=== PATIENT | female | born 1940 | race Caucasian/White ===

== ENCOUNTER → 2018-01-01 | Outpatient (CLI) | payer OTHER ==
[~2018-01-01] MED LIST: ACEPHEN650 M1 RC; ADVAIR HFA 230M12 GM INH; AMARYL4 MG PO; ASPIR 8181 MG PO; ASPIRIN325 PO; AUGMENTIN 875-1 EACH PO; AUGMENTIN 875875 MG PO; BENADRYL25 MG PO; BENTYL10 MG PO; CALCITRIOL0.25 MCG PO; CARVEDILOL6.25 MG PO; CEFDINIR300 MG PO; COUMADIN 3 MG TA3 M1 PO; CYMBALTA60 MG PO; DUONEB 2.5-0.5 M3 ML INH; FUROSEMIDE 40 M40 M1 PO; HUMALOG100 UNIT/1 SUBQ; IMDUR 30 MG TAB30 M1 PO; IMDUR 30 MG TAB30 MG PO; IMDUR 60 MG TAB60 M1 PO; INDOMETHACIN 5050 M1 PO; IRON325 PO; K-DUR 20 MEQ T20 MEQ PO; KEFLEX500 M1 PO; KLOR-CON 1010 MEQ PO; LANTUS SUBQ; LASIX 20 MG TAB20 MG PO; LASIX 40 MG TAB40 M1 PO; LASIX 40 MG TAB40 M2 PO; LEVAQUIN 500 M500 M2 PO; LEXAPRO 10 MG T10 M1 PO; LEXAPRO 10 MG T10 M2 PO; LISINOPRIL10 MG PO; LISINOPRIL2.5 MG PO; LISINOPRIL5 MG PO; MUCUS RELIEF C400 MG PO; MUCUS RELIEF600 MG PO; NITROGLYCERIN0.4 MG SL; NITROGLYCERIN0.4 MG SUBLING; NITROSTAT0.4 MG SUBLING; NORCO 5-325 TA1 EACH PO; NOVOLOG100 UNIT/1 SUBQ; NOVOLOG100 UNIT/M SUBQ; PANTOPRAZOLE SO40 M1 PO; PAROXETINE HCL20 MG PO; PATANASE30.5 GM NASAL; PERCOCET 5-3251 EACH PO; PLAVIX 75 MG TA75 M1 PO; POTASSIUM20; PREDNISONE 10 M10 M1 PO; PREDNISONE 10 M10 MG PO; PREDNISONE 20 M20 M1 PO; PRINIVIL10 MG PO; PROTONIX40 M2 PO; SENNA S TABLET1 EACH PO; SINUS MED; SPIRIVA INH; STOOL SOFTENER; STOOL SOFTENER100 MG PO; STOOL SOFTENER50 MG PO; SYMBICORT160 MCG/4. INH; TAMIFLU75 MG PO; ULTRAM 50MG TAB50 MG PO; VANTIN PO; VITAMIN D2000 UNIT PO; VYTORIN 10-801 EACH PO; XARELTO10 MG PO; ZEMPLAR2 MCG PO; ZOCOR40 MG PO; [UNRECOGNIZED DRUG - OTHER] PO
[2018-01-01 16:04] LABS: CALCIUM 8.9 mg/dL (8.5-10.1); CREATININE 1.7 mg/dL (0.6-1.3)
== END ==
LOC: M.LAB 15:13
PROVIDERS: Internal Medicine
DX: I50.22 Chronic systolic (congestive) heart failure (principal)

== ENCOUNTER → 2018-01-20 | Outpatient (CLI) | payer OTHER ==
--- NOTE | 2018-01-20 11:48 | 2DMMODE ---
[place] [address] 2 D/M-MODE ECHOCARDIOGRAM Name: KIKI HERNANDEZ Room: [facility]#: [id number] Admission: 01/20/18 Attend Phys: Zoila Aguilar, Discharge: Date of : 42 Date of Service: 01/20/18 1148 Report #: [id number] THIS REPORT FOR: //name// APPROVED REPORT Study performed: 01/20/2018 10:12:03 EXAM: Comprehensive 2D, Doppler, and color-flow Echocardiogram Patient Location: Out-Patient BSA: 1.64 HR: 70 bpm BP: 152/64 mmHg Other Information Study Quality: Good Indications Congestive Heart Failure 2D Dimensions LVEF(%): 65.97 (>50%) IVSd: 14.53 (7-11mm) LVOT Diam: 19.76 (18-24mm) LVDd: 53.07 mm PWd: 11.91 (7-11mm) Ascending Ao: 30.79 (22-36mm) LVDs: 33.63 (25-40mm) Aortic Root: 25.27 mm Logan's LVEF: 65.97 % Volumes Left Atrial Volume (Systole) LA ESV Index: 27.80 mL/m2 Aortic Valve AoV Peak Salomon.: 1.33 m/s AO Peak Gr.: 7.03 mmHg LVOT Max P.47 mmHg AO Mean Gr.: 3.86 mmHg LVOT Mean P.25 mmHg LVOT Max V: 0.79 m/s AO V2 VTI: 25.75 cm LVOT Mean V: 0.51 m/s KEVIN (VTI): 1.78 cm2 LVOT V1 VTI: 14.95 cm Mitral Valve E/A Ratio: 0.70 MV Decel. Time: 217.55 ms MV E Max Salomon.: 0.62 m/[place] [address] 2 D/M-MODE ECHOCARDIOGRAM Name: KIKI HERNANDEZ Room: [facility]#: [id number] Admission: 01/20/18 Attend Phys: Zoila Aguilar, Discharge: Date of : 42 Date of Service: 01/20/18 1148 Report #: [id number] PHT: 63.09 ms MVA (PHT): 3.49 cm2 TDI E/Lateral E': 8.86 E/Medial E': 15.50 Medial E' Salomon.: 0.04 m/s Lateral E' Salomon.: 0.07 m/s Pulmonary Valve PV Peak Salomon.: 0.97 m/s PV Peak Gr.: 3.76 mmHg Tricuspid Valve TR Peak Gr.: 27.11 mmHg RVSP: 32.11 mmHg Left Ventricle The left ventricle is normal size. There is normal LV segmental wall motion. There is normal left ventricular wall thickness. Left ventricular systolic function is mildly decreased. LVEF is 45%.. Grade I - abnormal relaxation pattern. Right Ventricle The right ventricle is normal size. The right ventricular systolic function is normal. Atria Left atrium is mildly dilated. The right atrium size is normal. Aortic Valve Mild aortic valve sclerosis. Mild aortic regurgitation. There is no aortic valvular stenosis. Mitral Valve There is mitral annular calcification. Mild mitral regurgitation. No evidence of mitral valve stenosis. Tricuspid Valve The tricuspid valve is normal in structure. Mild tricuspid regurgitation. The RVSP is __32.1 mmHg. Pulmonic Valve The pulmonary valve is normal in structure. There is no pulmonic valvular regurgitation. Great Vessels The aortic root is normal in size. IVC [place] [address] 2 D/M-MODE ECHOCARDIOGRAM Name: KIKI HERNANDEZ Room: [facility]#: [id number] Admission: 01/20/18 Attend Phys: Zoila Aguilar, Discharge: Date of : 42 Date of Service: 01/20/18 1148 Report #: [id number] collapses with >50% inspiration Pericardium There is no pericardial effusion. <Conclusion> The left ventricle is normal size. There is normal left ventricular wall thickness. Left ventricular systolic function is mildly decreased. Grade I - abnormal relaxation pattern. The right ventricle is normal size. Left atrium is mildly dilated. Mild aortic valve sclerosis. Mild aortic regurgitation. There is no aortic valvular stenosis. There is mitral annular calcification. Mild mitral regurgitation. The tricuspid valve is normal in structure. Mild tricuspid regurgitation. The RVSP is __32.1 mmHg. IVC is normal in size and collapses with >50% inspiration There is no pericardial effusion. There is normal LV segmental wall motion. LVEF is 45%.. <ELECTRONICALLY SIGNED> By: Dima Weber MD, FACC 01/20/18 1148 1148 1148 Dima Weber MD, FACC /INF
== END ==
LOC: M.CRD 09:52
DX: I08.3 Combined rheumatic disorders of mitral, aortic and tricuspid valves (principal); I50.22 Chronic systolic (congestive) heart failure; I25.5 Ischemic cardiomyopathy

== ENCOUNTER 2018-03-08 18:13 | Inpatient (IN) | payer OTHER ==
[~2018-03-08] VITALS: Ht 152.4 cm; Wt 66.5 kg
[~2018-03-08 18:13] MED LIST changes: -CEFDINIR300 MG PO; -CYMBALTA60 MG PO; -LASIX 20 MG TAB20 MG PO; -SYMBICORT160 MCG/4. INH; -VITAMIN D2000 UNIT PO; -XARELTO10 MG PO
[2018-03-08 18:14] VITALS: BP 115/73
[2018-03-08] MEDS ORDERED: LASIX 20 MG TAB20 MG PO (18:25)
[2018-03-08] MEDS ORDERED: XARELTO10 MG PO (18:26)
[2018-03-08] MEDS ORDERED: CYMBALTA60 MG PO (18:26)
[2018-03-08] MEDS ORDERED: AMARYL4 MG PO (18:27)
[2018-03-08] MEDS ORDERED: VITAMIN D2000 UNIT PO (18:27)
[2018-03-08 18:36] LABS: ABSOLUTE BASOPHILS 0.1 thou/uL (0.0-0.2); ABSOLUTE EOSINOPHILS 0.2 thou/uL (0.0-0.7); ABSOLUTE LYMPHOCYTES 1.9 thou/uL (0.8-5.3); ABSOLUTE MONOCYTES 0.9 thou/uL (0.0-1.2); ABSOLUTE NEUTROPHILS 5.8 thou/uL (1.6-8.1); EOSINOPHILS 1.8 %; HEMATOCRIT 41.8 % (37.0-47.0); LYMPHOCYTES 21.8 %; MCH 31.4 pg (26.0-34.0); MCHC 33.6 g/dL (28.0-37.0); MCV 93.5 fL (80.0-100.0); MONOCYTES 10.5 %; NUCLEATED RBCS 0 /100WBC; PLATELET COUNT* 197 thou/uL (150-400); POLYS 64.9 %; RBC 4.47 mil/uL (4.20-5.00); RDW-CV 14.9 % (10.5-14.5); WBC 8.9 thou/uL (4.0-11.0)
[2018-03-08 18:44] LABS: APTT 33.1 Seconds (25.0-31.3); INR 1.2; PROTIME 11.8 Seconds (9.20-11.50)
[2018-03-08 18:45] LABS: ANION GAP 6 mmol/L (7-16); BUN 57 mg/dL (7-18); CALCIUM 9.1 mg/dL (8.5-10.1); CHLORIDE 103 mmol/L (98-107); CO2 30 mmol/L (21-32); GLUCOSE 181 mg/dL (70-99); POTASSIUM 4.1 mmol/L (3.5-5.1); SODIUM 139 mmol/L (136-145)
[2018-03-08 19:05] LABS: ALBUMIN 3.7 g/dL (3.4-5.0); ALKALINE PHOSPHATASE 113 U/L (46-116); CK-MB MASS 0.5 ng/mL (<0.5-3.6); LIPASE 116 U/L (73-393); MAGNESIUM 2.5 mg/dL (1.8-2.4); NT-PRO BRAIN NAT PEPTIDE 578 pg/mL (<300); SGOT 12 U/L (15-37); SGPT 13 U/L (30-65); TOTAL BILIRUBIN 0.7 mg/dL (<0.1-1.0); TOTAL PROTEIN 7.1 g/dL (6.4-8.2); TROPONIN-I LEVEL <0.06 ng/mL (<0.06)
[2018-03-08 19:14] LABS: BE 3.8 mmol/L (-2 to +3); HCO3 28.6 mmol/L (22.0-26.0); PCO2 43.7 mmHg (35.0-45.0); PO2 67.6 mmHg (75.0-100.0); pH 7.433 (7.340-7.450)
[2018-03-08 22:00] VITALS: BP 131/71
[2018-03-08 22:45] VITALS: BP 137/87
[2018-03-08 23:47] VITALS: BP 120/48
[2018-03-09 04:00] VITALS: BP 129/59
--- NOTE | 2018-03-09 05:32 | NUR ---
ASSUMED PT CARE AT B2200, PT IS A&OX4, PT IS TRACING NSR ON THE MONITOR WITH A 1DAVB. PT IS ON 2L NC SATTING MID TO HIGH 90'S. ADMISSION COMPLETED CHARTED. PT DENIES ANY PAIN OR NEEDS AT THIS TIME. PT WEARS A CPAP AT HOME, STATES SHE COULD HAVE HER DAUGHTER BRING IT UP TO HER SUSAN. PT IS UP TO BR WITH ONE. PT HAS A PERSONAL NICTOINE PATCH THAT SHE DOES NOT WANT TO REMOVE. BED IN LOW POSITION, FLAKITO LIGHT IN REACH, BED ALARM ON, YELLOW ARM BAND AND SOCKS IN PLACE. HOURLY ROUNDING COMPELTED FOR PT SAFETY.
[2018-03-09 08:00] VITALS: BP 132/69
--- NOTE | 2018-03-09 10:54 | NUR ---
ASSUMED CARE OF PT AT 0730. PT RESTING IN BED. PT A&0X4, DENIES ANY PAIN OR SHORTNESS OF BREATH AT THIS TIME. PT DAUGHTER AT BEDSIDE. UPDATED ON CURRENT CARE PLAN. PT TRACING SR WITH BBB ON THE CHECKER. ON 2L NC SAT 94%. PT WEARS CPAP AT [facility]. PT DAUGHTER IS TO BRING IN HOME CPAP LATER TODAY. PT UP SBA TO BATHROOM. CARDIOLOGY CONSULT IN PLACE. AM ASSESSMENT CHARTED. MEDICATIONS PER DEC. PT REPOSITIONS SELF. HOURLY ROUNDING OBSERVED. BED IN LOW POSITION. BED ALARM IN PLACE. FALL PRECAUTIONS IN PLACE. CALL LIGHT WITHIN REACH. WILL CONTINUE PLAN OF CARE.
[2018-03-09 13:03] VITALS: BP 142/69
--- NOTE | 2018-03-09 13:21 | EKG ---
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 /EPI
[2018-03-09 17:20] VITALS: BP 140/65
--- NOTE | 2018-03-09 17:21 | NUR ---
NO ACUTE CHANGES THROUGHOUT SHIFT. REFER TO CHARTING. PT HAD VISITORS THROUGHOUT SHIFT. PT DENIES ANY PAIN OR SHORTNESS OF BREATH. PT STATES SHE HAS SOME PAIN WHEN COUGHING BUT NOTHING LIKE YESTERDAY. PT CONTINUES TO TRACE SR WITH BBB ON THE LOG CUT OFF SAWYER. ON 2L NC SAT UPPER 90'S. PT UP SBA TO BATHROOM, AMBULATED TO BATHROOM MULTIPLE TIMES THROUGHOUT SHIFT. MEDICATIONS PER DEC. PT REPOSITIONS SELF. HOURLY ROUNDING OBSERVED. BED IN LOW POSITION. BED ALARM IN PLACE. FALL PRECAUTIONS IN PLACE. CALL LIGHT WITHIN REACH. WILL CONTINUE PLAN OF CARE.
[2018-03-09 20:10] VITALS: BP 163/66
[2018-03-09 23:50] VITALS: BP 124/50
[2018-03-10 04:17] VITALS: BP 111/60
--- NOTE | 2018-03-10 05:34 | NUR ---
ASSUMED CARE AROUND 1930. PT A/OX4 AND PLEASANT, RESTING MOST THE NIGHT. TELE MONITOR TRACING SR/BBB. VSS, AFEBRILE. ON CPAP WHILE SLEEPING. REPORTS GREEN SPUTUM. IV SALINE LOCKED. UP SBA TO BSC. SEE CHARTING. BEDALARM IN PLACE, CALL LIGHT IN REACH, WILL CONTINUE WITH PLAN OF CARE.
[2018-03-10 08:42] VITALS: BP 124/75
[2018-03-10 10:43] VITALS: BP 124/75
--- NOTE | 2018-03-10 11:32 | NUR ---
ASSUMED CARE OF PATIENT AFTER REPORT THIS MORNING. PATIENT SLEEPING, EASY TO WAKE, ORIENTED APPROPRIATELY. PHYSICAL ASSESSMENT COMPLETED AND CHARTED. VERY HARD OF HEARING. VITAL SIGNS STABLE. OXYGEN SATURATION WITHIN NORMAL LIMITS ON 2 LPM PER NASAL CANULA. PATIENT GIVEN SCHEDULED MEDICATIONS, SEE EMAR FOR DOCUMENTATION. TRANSFERS AND AMBULATES WITH ASSISTANCE FROM STAFF, USES CALL LIGHT APPROPRIATELY. DENIES NEEDS AT THIS TIME. CALL LIGHT WITHIN REACH. NURSING WILL CONTINUE TO MONITOR.
[2018-03-10 12:16] VITALS: BP 128/68
--- NOTE | 2018-03-10 16:10 | NUR ---
Pt is A&O. Resides at home with her dtr. Independent with ADLs. Pt wears home o2 and cpap, provided through [facility]. Hx of [facility]. No hx of SNF. Pt has a walker, cane and wc at home that she can use as needed. Cardiology following. Goal is to return home once medically stable.
[2018-03-10 16:17] VITALS: BP 132/58
--- NOTE | 2018-03-10 17:22 | NUR ---
NO CHANGE IN PATIENT STATUS. REMAINS ALERT AND ORIENTED APPROPRIATELY. VERY HARD OF HEARING. HAS BEEN UP TO BATHROOM WITH ASSISTANCE FROM STAFF SEVERAL TIMES THIS SHIFT. USES CALL LIGHT APPROPRIATELY. WORKED WITH PHYSICAL AND OCCUPATIONAL THERAPY. WALKED HALLWAYS WITH OXYGEN. DENIES NEEDS AT THIS TIME. CALL LIGHT WITHIN REACH. NURSING WILL CONTINUE TO MONITOR.
[2018-03-10 20:00] VITALS: BP 124/45
[2018-03-11 00:51] VITALS: BP 117/53
--- NOTE | 2018-03-11 02:58 | NUR ---
ASSUMED PT CARE AT 1930, PT IS A&OX4, SHE CAN BE FORGETFUL AT TIMES. PT DENIES ANY PAIN OR NEEDS AT THIS TIME. PT IS TRACING NSR WITH A 1DAVB AND A BBB ON THE MONITOR, ON 2L NC AND HER HOME CPAP AT [facility]. PT IS UP WITH ONE TO THE BR. BED IN LOW POSITION, CALL LIGHT IN REACH, BED ALARM ON, YELLOW ARM BAND AND SOCKS IN PLACE. HOURLY ROUNDING COMPLETED FOR PT SAFETY.
[2018-03-11 04:43] VITALS: BP 102/53
--- NOTE | 2018-03-11 07:40 | CON ---
[address] [address] CONSULTATION Name: KIKI HERNANDEZ Room: [address] IN M.R.#: [id number] Admission: 03/08/18 Attend Phys: Noah Ludwig, Discharge: Date of : 42 Report #: [id number] THIS REPORT FOR: //name// CC: Amy Ludwig DATE OF SERVICE: 03/10/2018 REQUESTING PHYSICIAN: Dr. Luis. REASON FOR CONSULTATION: Chest pain, history of COPD. DISCUSSION: The patient is a pleasant 77-year-old woman who has a history of underlying COPD. She has not been steroid or O2 dependent. In fact, she is not on any oxygen nor inhalers at home. She presented to the Emergency Department several days ago with complaints of increasing chest pain. It was anterior. It was worse when she coughed or took in a deep breath. She has been coughing up some thick green secretions. She does not use any Mucinex. She is not on any nebulizer treatments either. She was seen in the ED. Was noted to have coarse breath sounds. Arterial blood gases revealed adequate oxygenation while she was on a couple of liters of oxygen. She does have a past history of pulmonary embolism. This was in 2016. Initially was on warfarin, now has been on Xarelto and she has been taking that. Because of that history, she did have a ventilation perfusion lung scan done, which was thought to be low probability for PE. Chest film did not show any acute findings, but she did have changes of prior median sternotomy. She is breathing somewhat better relative to when she came in the hospital. However, the pain is still there. Our group has seen her previously when she has been in the hospital. However, she has not followed with us on an outpatient basis. However, it does appear that Dr. Hess had set her up for an appointment in our office, but then she was admitted. So that office visit has been canceled. She also has a history of coronary artery disease. Had coronary artery bypass grafting surgery back in 1990 at [facility]. Had an NC at that time. Subsequently, has had some other interventions done. She does continue to follow up with Cardiology. Has been known also to have an ischemic cardiomyopathy, diabetes mellitus type 2, sleep apnea for which she uses her CPAP machine, hypertension, dyslipidemia, peptic ulcer disease and has significant gastric bleed in 2011, exploratory laparotomy with lysis of adhesions and ileocecal resection in 2013, was due to a necrotic ileum. MEDICATIONS: At the time of admission, her home medications are isosorbide, [address] [place] [address] CONSULTATION Name: DAVID,KIKIPRISCILA BRADY Room: [address] ADM IN M.R.#: [id number] Admission: 03/08/18 Attend Phys: Noah Ludwig, Discharge: Date of : 42 Report #: [id number] Protonix, simvastatin, lisinopril, Coreg, Lasix, Xarelto, Cymbalta, Amaryl, vitamin D3. SOCIAL HISTORY: Long history of tobacco abuse. She has quit in the past and unfortunate would resume smoking. Her last cigarette was about 2 weeks ago. 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 REVIEW OF SYSTEMS: A 12-point ROS was done. Note positives above. She denies any difficulty swallowing. She has not had any nausea or vomiting. Has had the chest pain. She also notes she did not feel like it was heart as it was worse when she coughed or took in a deep breath. Secretions have been thick. Not using any Mucinex at home. Denies any syncopal episodes. She is not aware of any fevers, chills or sweats at home. Did not have any issues with lower extremity edema. PHYSICAL EXAMINATION: GENERAL APPEARANCE: A woman who looks her stated age. HEENT: Head is normocephalic. Sclerae nonicteric. Turgor is poor. Does have fair amount of wrinkles noted. Mucous membranes are little dry, but no thrush is seen. NECK: Negative for adenopathy. No JVD. HEART: Regular rate. No murmur is heard. No S3. She has a healed median sternotomy scar. I do not appreciate any instability with palpation over her sternum. No subcutaneous emphysema. LUNGS: Show breath sounds to be diminished. She has prolonged expiratory phase. Few faint late expiratory wheezes are heard and a few rhonchi. Excursion is equal. No pleural rubs are heard. ABDOMEN: Soft without definite hepatosplenomegaly noted. No guarding or rebound tenderness. EXTREMITIES: She has no clubbing. Lower extremities are thin. No edema is noted. SKIN: Warm and dry. NEUROLOGIC: She is alert and oriented x 3. She is hard of hearing. LABORATORY AND X-RAY FINDINGS: Arterial blood gases done on 2 liters, she had a pH of 7.43, pCO2 of 44, pO2 of 68, bicarb of 29 with a saturation of 92%. On her chemistry, BUN is 57, creatinine of 2.0, potassium is 4.1. ProBNP 578 on admission. White blood cell count 8900, hemoglobin 14, hematocrit of 41.8, platelets 197,000. Blood cultures have been sent. Those results are negative to date. X-ray was reviewed. She had a ventilation perfusion lung scan, low probability. Chest x-ray showed median sternotomy. Was a portable study. No acute findings noted. Her last echocardiogram done at this facility was last month. At that time, LV was normal size. EF was mildly decreased to 45% with grade 1 diastolic dysfunction. RV was normal. No significant [place] [address] CONSULTATION Name: DAVIDKIKIPRISCILA MELCHOREEN Room: [address] IN [facility].#: [id number] Admission: 03/08/18 Attend Phys: Noah Ludwig, Discharge: Date of : 42 Report #: [id number] IMPRESSION: 1. Chest pain. It is chest wall and it can be easily reproduced. Has discomfort with palpation over her sternum. Most likely from her cough. May have costochondritis. It does not appear that she has disrupted her sternum. 2. Chronic obstructive pulmonary disease exacerbation. 3. Probable acute bronchitis. She is having thick mucopurulent secretions. 4. History of tobacco abuse. 5. Coronary artery disease. She is status post coronary artery bypass grafting surgery in 1990. She has also had stents placed in the interim. 6. Diabetes mellitus type 2. 7. Chronic kidney disease. 8. History of bowel resection for ischemic ileum. RECOMMENDATIONS: 1. We will add Mucinex. 2. We will also start flutter device. 3. I will also add some IV steroids. <ELECTRONICALLY SIGNED> By: Roberta Dee MD 03/11/18 0740 1415 [id number] Dee MD /nt
[2018-03-11 08:00] VITALS: BP 110/48
[2018-03-11 11:57] VITALS: BP 127/42
[2018-03-11] MEDS ORDERED: SYMBICORT160 MCG/4. INH (12:22)
[2018-03-11] MEDS ORDERED: CEFDINIR300 MG PO (12:23)
--- NOTE | 2018-03-11 14:16 | NUR ---
ASSUMED CARE OF PATIENT AFTER REPORT THIS MORNING. PATIENT AWAKE, ALERT, AND ORIENTED APPROPRIATELY. PHYSICAL ASSESSMENT COMPLETED AND CHARTED. NO COMPLAINTS OF PAIN. VITAL SIGNS STABLE. OXYGEN SATURATION WITHIN NORMAL LIMITS ON ROOM AIR. GIVEN SCHEDULED MEDICATIONS, SEE EMAR FOR DOCUMENTATION. PATIENT TRANSFERS AND AMBULATES WITH ASSISTANCE FROM STAFF. USES CALL LIGHT APPROPRIATELY. RECEIVED ORDERS TO DISCHARGE PATIENT HOME WITH DAUGHTER. DAUGHTER STATES SHE WILL ARRIVE AT 1600 TO TAKE PATIENT HOME. PATIENT DENIES NEEDS AT THIS TIME. CALL LIGHT WITHIN REACH. WILL CONTINUE TO MONITOR UNTIL DISCHARGE.
--- NOTE | 2018-03-11 16:01 | NUR ---
DISCHARGE PAPERWORK COMPLETED AND CHECK BY SECOND NURSE. SIGNED BY ALL APPROPRIATE PARTIES AND ON PATIENT'S CHART. GIVEN PRESCRIPTIONS FOR SYMBICORT AND OMNICEF. DISCUSSED PRESCRIPTION EDUCATION WITH PATIENT. ANSWERED ALL QUESTIONS. PATIENT'S BELONGINGS ARE PACKED AND IN HER POSSESSION. WAITING FOR PATIENT'S RIDE. WILL CONTINUE TO MONITOR.
--- NOTE | 2018-03-11 16:14 | NUR ---
patient discharged at this time with daughter.
== END 2018-03-11 16:14 | disposition home or self-care (01) | DRG 291 ==
LOC: M.ERS 18:13 → M.TBA-ER 20:56 → M.2W 20:56
PROVIDERS: Family Medicine; Personal Emergency Response Attendant; ADMIT Family Medicine
DX: I13.0 Hypertensive heart and chronic kidney disease with heart failure and stage 1 through stage 4 chronic kidney disease, or unspecified chronic kidney disease (principal); J96.01 Acute respiratory failure with hypoxia; I50.23 Acute on chronic systolic (congestive) heart failure; N18.4 Chronic kidney disease, stage 4 (severe); J44.1 Chronic obstructive pulmonary disease with (acute) exacerbation; J44.0 Chronic obstructive pulmonary disease with (acute) lower respiratory infection; I48.91 Unspecified atrial fibrillation; G30.9 Alzheimer's disease, unspecified; F02.80 Dementia in other diseases classified elsewhere, unspecified severity, without behavioral disturbance, psychotic disturbance, mood disturbance, and anxiety; F17.210 Nicotine dependence, cigarettes, uncomplicated; E83.41 Hypermagnesemia; I25.10 Atherosclerotic heart disease of native coronary artery without angina pectoris; I25.5 Ischemic cardiomyopathy; E78.5 Hyperlipidemia, unspecified; E11.22 Type 2 diabetes mellitus with diabetic chronic kidney disease; E56.9 Vitamin deficiency, unspecified; J20.9 Acute bronchitis, unspecified; G47.33 Obstructive sleep apnea (adult) (pediatric); Z90.49 Acquired absence of other specified parts of digestive tract; Z90.89 Acquired absence of other organs; I25.2 Old myocardial infarction; Z86.711 Personal history of pulmonary embolism; Z95.5 Presence of coronary angioplasty implant and graft; Z95.1 Presence of aortocoronary bypass graft; Z79.899 Other long term (current) drug therapy; Z99.81 Dependence on supplemental oxygen

== ENCOUNTER 2018-12-17 10:26 | Inpatient (IN) | payer OTHER ==
[~2018-12-17] VITALS: Ht 152.4 cm; Wt 81.6 kg
[~2018-12-17 10:26] MED LIST changes: -CARVEDILOL6.25 MG PO; +CEFDINIR300 MG PO; +COREG6.25 MG PO; +CYMBALTA60 MG PO; +LASIX 20 MG TAB20 MG PO; +SYMBICORT160 MCG/4. INH; +VITAMIN D2000 UNIT PO; +XARELTO10 MG PO
[2018-12-17] MEDS ORDERED: PLAVIX 75 MG TA75 M1 PO (10:40)
[2018-12-17] MEDS ORDERED: VITAMIN B125000 MCG PO (10:41)
[2018-12-17] MEDS ORDERED: ZYRTEC10 M5 PO (10:41)
[2018-12-17 10:46] LABS: ABSOLUTE BASOPHILS 0.1 thou/uL (0.0-0.2); ABSOLUTE EOSINOPHILS 0.2 thou/uL (0.0-0.7); ABSOLUTE LYMPHOCYTES 2.2 thou/uL (0.8-5.3); ABSOLUTE MONOCYTES 0.9 thou/uL (0.0-1.2); BASOPHILS 0.8 %; EOSINOPHILS 2.9 %; HEMATOCRIT 47.1 % (37.0-47.0); MCH 31.1 pg (26.0-34.0); MCHC 33.8 g/dL (28.0-37.0); MONOCYTES 10.1 %; MPV 8.1 fl. (7.2-11.1); NUCLEATED RBCS 0 /100WBC; PLATELET COUNT* 241 thou/uL (150-400); POLYS 60.2 %; RBC 5.13 mil/uL (4.20-5.00); RDW-CV 13.5 % (10.5-14.5); WBC 8.4 thou/uL (4.0-11.0)
[2018-12-17 10:58] LABS: APTT 24.6 Seconds (25.0-31.3); PROTIME 10.5 Seconds (9.20-11.50)
[2018-12-17 11:00] LABS: ANION GAP 3 mmol/L (7-16); BUN 38 mg/dL (7-18); CALCIUM 9.5 mg/dL (8.5-10.1); CHLORIDE 99 mmol/L (98-107); CO2 36 mmol/L (21-32); CREATININE 1.8 mg/dL (0.6-1.3); GLUCOSE 230 mg/dL (70-99); POTASSIUM 4.1 mmol/L (3.5-5.1); SODIUM 138 mmol/L (136-145)
[2018-12-17 11:17] LABS: ALBUMIN 3.5 g/dL (3.4-5.0); ALKALINE PHOSPHATASE 121 U/L (46-116); CK-MB MASS 0.5 ng/mL (<0.5-3.6); LIPASE 140 U/L (73-393); MAGNESIUM 2.4 mg/dL (1.8-2.4); NT-PRO BRAIN NAT PEPTIDE 2776 pg/mL (<300); SGOT 10 U/L (15-37); SGPT 13 U/L (30-65); TOTAL BILIRUBIN 0.9 mg/dL (<0.1-1.0); TOTAL PROTEIN 6.9 g/dL (6.4-8.2); TROPONIN-I LEVEL <0.06 ng/mL (<0.06)
[2018-12-17 12:04] LABS: BE 3.8 mmol/L (-2 to +3); PCO2 42.5 mmHg (35.0-45.0); pH 7.442 (7.340-7.450)
[2018-12-17 12:06] LABS: PO2 58.7 mmHg (75.0-100.0)
[2018-12-17 14:40] VITALS: BP 167/74
[2018-12-17 16:00] VITALS: BP 157/63
--- NOTE | 2018-12-17 16:10 | EKG ---
[place] [address] ELECTROCARDIOGRAM REPORT Name: DAVIDKIKI PARR Room: [address] ADM IN .R.#: [id number] Admission: 12/17/18 Attend Phys: Boby Rogers MD Discharge: Date of : 42 Report #: [id number] THIS REPORT FOR: //name// 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: : 1940 Requested By: Stanley Chaparro Order Number: [id number] MD: Dima Weber Measurements Intervals [place] Rate: 80 P: 87 WV: 144 QRS: -5 QRSD: 146 T: 195 QT: 408 QTc: 471 Interpretive Statements Sinus rhythm Left bundle branch block Baseline wander in lead(s) I,II,aVR,aVF,V6 Compared to ECG 03/08/2018 18:18:06 No significant changes Electronically Signed On 12-17-2018 16:10:07 NATIONAL ACCOUNTS RECRUITER by Dima Weber [email or web address] <ELECTRONICALLY SIGNED> By: Dima Weber MD, [facility] 12/17/18 1610 1036 1036 Dima Weber MD, [facility] /EPI
[2018-12-17 16:20] VITALS: BP 116/65
[2018-12-17 20:00] VITALS: BP 148/68
[2018-12-18] VITALS (9 sets, daily range): BP systolic 107–193; BP diastolic 49–93
[2018-12-18 05:24] LABS: HEMATOCRIT 43.4 % (37.0-47.0); HEMOGLOBIN 14.6 gm/dL (12.0-15.0); MCH 31.2 pg (26.0-34.0); MCHC 33.7 g/dL (28.0-37.0); MCV 92.6 fL (80.0-100.0); MPV 8.6 fl. (7.2-11.1); NUCLEATED RBCS 0 /100WBC; PLATELET COUNT* 214 thou/uL (150-400); RBC 4.68 mil/uL (4.20-5.00); RDW-CV 13.4 % (10.5-14.5); WBC 8.5 thou/uL (4.0-11.0)
[2018-12-18 05:36] LABS: CALCIUM 9.5 mg/dL (8.5-10.1); CREATININE 1.9 mg/dL (0.6-1.3); POTASSIUM 4.4 mmol/L (3.5-5.1)
[2018-12-18 06:02] LABS: ABSOLUTE LYMPHOCYTES 1.1 thou/uL (0.8-5.3); ABSOLUTE NEUTROPHILS 7.4 thou/uL (1.6-8.1); LARGE PLATELETS RARE; PLATELET ESTIMATE ADEQUATE
[2018-12-18 06:03] LABS: ANISOCYTOSIS 1+
[2018-12-18 06:04] LABS: POIKILOCYTOSIS 1+
--- NOTE | 2018-12-18 18:21 | 2DMMODE ---
[place] [address] 2 D/M-MODE ECHOCARDIOGRAM Name: KIKI HERNANDEZ Room: [address] IN [facility]#: [id number] Admission: 12/17/18 Attend Phys: Boby Rogers, Discharge: Date of : 42 Date of Service: 12/18/18 1821 Report #: [id number] THIS REPORT FOR: //name// APPROVED REPORT Study performed: 12/18/2018 10:32:51 EXAM: Comprehensive 2D, Doppler, and color-flow Echocardiogram Patient Location: In-Patient Room #: 219 Status: routine BSA: 1.77 HR: 84 bpm BP: 183/72 mmHg Rhythm: NSR Other Information Study Quality: Good Indications Dyspnea 2D Dimensions IVSd: 12.22 (7-11mm) LVOT Diam: 19.54 (18-24mm) LVDd: 50.97 mm PWd: 12.65 (7-11mm) Ascending Ao: 29.31 (22-36mm) LVDs: 32.08 (25-40mm) Aortic Root: 27.98 mm Volumes Left Atrial Volume (Systole) LA ESV Index: 31.00 mL/m2 Aortic Valve AoV Peak Salomon.: 1.56 m/s AO Peak Gr.: 9.79 mmHg LVOT Max P.45 mmHg AO Mean Gr.: 5.34 mmHg LVOT Mean P.73 mmHg LVOT Max V: 0.93 m/s AO V2 VTI: 29.80 cm LVOT Mean V: 0.60 m/s KEVIN (VTI): 1.92 cm2 LVOT V1 VTI: 19.10 cm AI Wright: 3.05 m/s2 AI PHT: 358.51 ms Mitral Valve E/A Ratio: 0.83 [place] [address] 2 D/M-MODE ECHOCARDIOGRAM Name: KIKI HERNANDEZHLEEN Room: [address] IN .R.#: [id number] Admission: 12/17/18 Attend Phys: Boby Rogers, Discharge: Date of : 42 Date of Service: 12/18/18 1821 Report #: [id number] MV Decel. Time: 180.26 ms MV E Max Salomon.: 0.91 m/s MV PHT: 52.28 ms MVA (PHT): 4.21 cm2 TDI E/Lateral E': 9.10 E/Medial E': 15.17 Medial E' Salomon.: 0.06 m/s Lateral E' Salomon.: 0.10 m/s Pulmonary Valve PV Peak Salomon.: 1.33 m/s PV Peak Gr.: 7.03 mmHg Tricuspid Valve RAP Estimate: 5.00 mmHg TR Peak Gr.: 31.88 mmHg RVSP: 36.00 mmHg PA Pressure: 36.00 mmHg Left Ventricle The left ventricle is normal size. There is basilar inferior wall hypokinesis. Mild concentric left ventricular hypertrophy. Left ventricular systolic function is mildly decreased. LVEF is 45-50%. Grade I - abnormal relaxation pattern. Right Ventricle The right ventricle is normal size. The right ventricular systolic function is normal. Atria The left atrium size is normal. The right atrium size is normal. Aortic Valve Mild aortic valve sclerosis. Mild aortic regurgitation. There is no aortic valvular stenosis. Mitral Valve There is mitral annular calcification. Mild mitral regurgitation. No evidence of mitral valve stenosis. Tricuspid Valve The tricuspid valve is normal in structure. Trace tricuspid regurgitation. Mild pulmonary hypertension. Pulmonic Valve The pulmonary valve is normal in structure. There [place] [address] 2 D/M-MODE ECHOCARDIOGRAM Name: KIKI HERNANDEZ Room: [address] IN [facility]#: [id number] Admission: 12/17/18 Attend Phys: Boby Rogers, Discharge: Date of : 42 Date of Service: 12/18/18 1821 Report #: [id number] valvular regurgitation. Great Vessels The aortic root is normal in size. IVC is normal in size and collapses >50% with inspiration. Pericardium There is no pericardial effusion. <Conclusion> The left ventricle is normal size. Mild concentric left ventricular hypertrophy. Left ventricular systolic function is mildly decreased. LVEF is 45-50%. Grade I - abnormal relaxation pattern. There is basilar inferior wall hypokinesis. Mild aortic valve sclerosis. Mild aortic regurgitation. There is no aortic valvular stenosis. There is mitral annular calcification. Mild mitral regurgitation. Trace tricuspid regurgitation. Mild pulmonary hypertension. IVC is normal in size and collapses >50% with inspiration. <ELECTRONICALLY SIGNED> By: Seun Schwartz MD, FACC 12/18/181820 20 20 Seun Schwartz MD, FACC /INF
--- NOTE | 2018-12-18 18:22 | EKG ---
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: : 1940 Requested By: Stanley Chaparro Order Number: [id number] Noel DIAZ: Dima Weber Measurements Intervals [place] Rate: 81 P: 223 WI: 158 QRS: -17 QRSD: 147 T: 161 QT: 426 QTc: 495 Interpretive Statements Sinus or ectopic atrial rhythm Left bundle branch block Compared to ECG 12/17/2018 10:36:37 Ectopic atrial rhythm now present Electronically Signed On 12-18-2018 18:22:47 HYPERTRICHOLOGIST by Dima Weber [email or web address] <ELECTRONICALLY SIGNED> By: Dima Weber MD, [facility] 12/18/18 1822 1656 1656 Dima Weber MD, [facility] /EPI
--- NOTE | 2018-12-18 18:26 | EKG ---
[place] [address] ELECTROCARDIOGRAM REPORT Name: DAVIDKIKIEEN Room: [address] ADM IN M.R.#: [id number] Admission: 12/17/18 Attend Phys: Boby Rogers MD Discharge: Date of : 42 Report #: [id number] THIS REPORT FOR: //name// [facility] Test Date: 2018-12-18 Test Time: 00:40:42 Pat Name: KIKI HERNANDEZ Department: Room: [address] Gender: F Proof Sorter: : 1940 Requested By: Marko Christopher Order Number: [id number] Noel DIAZ: Dima Weber Measurements Intervals [place] Rate: 82 P: 58 PA: 159 QRS: 22 QRSD: 152 T: 192 QT: 423 QTc: 494 Interpretive Statements Sinus rhythm Left bundle branch block Baseline wander in lead(s) V5,V6 Compared to ECG 12/17/2018 10:36:37 No significant changes Electronically Signed On 12-18-2018 18:25:43 AIRCRAFT ENGINE TECHNICIAN by Dima Weber [email or web address] <ELECTRONICALLY SIGNED> By: Dima Weber MD, [facility] 12/18/18 1825 0040 0040 Dima Weber MD, [facility] /EPI
--- NOTE | 2018-12-18 18:27 | EKG ---
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
[2018-12-18 23:10] LABS: GLYCOHEMOGLOBIN (HGB A1C) 8.6 % (4.8-5.6)
[2018-12-19] VITALS: BP 114/42
[2018-12-19 04:00] VITALS: BP 100/50
[2018-12-19 05:38] LABS: ABSOLUTE LYMPHOCYTES 0.6 thou/uL (0.8-5.3); ABSOLUTE MONOCYTES 0.4 thou/uL (0.0-1.2); ABSOLUTE NEUTROPHILS 13.1 thou/uL (1.6-8.1); BASOPHILS 0.2 %; HEMATOCRIT 38.9 % (37.0-47.0); LYMPHOCYTES 4.2 %; MCH 30.3 pg (26.0-34.0); MCHC 33.3 g/dL (28.0-37.0); MONOCYTES 2.5 %; MPV 8.5 fl. (7.2-11.1); NUCLEATED RBCS 0 /100WBC; PLATELET COUNT* 204 thou/uL (150-400); POLYS 93.1 %; RBC 4.27 mil/uL (4.20-5.00); RDW-CV 13.5 % (10.5-14.5); WBC 14.1 thou/uL (4.0-11.0)
[2018-12-19 06:16] LABS: ALBUMIN 2.8 g/dL (3.4-5.0); CREATININE 2.1 mg/dL (0.6-1.3); TOTAL BILIRUBIN 0.4 mg/dL (<0.1-1.0); TOTAL PROTEIN 5.8 g/dL (6.4-8.2)
[2018-12-19 08:00] VITALS: BP 150/49
[2018-12-19 16:00] VITALS: BP 132/65; BP 137/46
--- NOTE | 2018-12-19 18:15 | CARDNUC ---
[place] [address] CARDIAC NUCLEAR IMAGING REPORT Name: KIKI HERNANDEZHLEEN Room: [address] IN [facility]#: [id number] Admission: 12/17/18 Attend Phys: Boby Rogers, Discharge: Date of : 42 Date of Service: 12/19/18 1815 Report #: [id number] THIS REPORT FOR: //name// APPROVED REPORT Study performed: 12/18/2018 17:12:00 Indication: Dyspnea, Chest pain Patient Location: In-Patient Room #: 219 Stress Tech: Savannah Sun Stress Nurse: Cara Callaway RN Ht: 5 ft 0 in Wt: 175 lbs BSA: 1.76 m2 BMI: 34.17 Medical History Medical History: mi, , CAD s/p CABG, CAD s/p stent, HTN, Diabetes, a fib, cardiomyoopathy, copd, chf Medications: carvedilol, clopidogrel, isosorbide, lisinopril, lasix, enoxaparin Allergies: nkda Cardiac Risk Factors: age, hypertension, diabetes, family hx Previous Cardiac Procedures: cabg, pci Exercise History: Sedentary Meds Held (24 hrs): carvedilol, isosorbide Resting Data Rest SPECT myocardial perfusion imaging was performed in supine position 30 minutes following the intravenous injection of 9.2 mCi of Tc-99m Sestamibi. Time of rest injection: 09:30 The images were gated to evaluate regional wall motion and calculate left ventricular ejection fraction. Administration Route: IV Administration Site: Left Arm Pharmacologic Stress Pharmacologic stress test was performed by injecting Regadenoson 0.4 mg IV push over 10-15 seconds immediately followed by the intravenous injection of 34.0 mCi of Tc-99m Sestamibi. Time of stress injection: 11:05 Administration Route: IV Administration Site: Left Arm Heart Rate at time of stress injection: [address] [place] [address] CARDIAC NUCLEAR IMAGING REPORT Name: KIKI HERNANDEZ Room: [address]#: [id number] Admission: 12/17/18 Attend Phys: Boby Rogers, Discharge: Date of : 42 Date of Service: 12/19/18 1815 Report #: [id number] Gated Stress SPECT was performed 40 minutes after stress injection. The images were gated to evaluate regional wall motion and calculate left ventricular ejection fraction. Prone imaging was performed. Stress Test Details Stress Test: Pharmacologic stress testing performed using 0.4 mg of regadenoson per 5 mL given IV over 10 seconds. Reason for pharmacologic stress test: physical limitation. 60 mg caffeine given for nausea. HR Max Heart Rate (APMHR): 143 bpm Resting HR: 62 bpm Target HR (85% APMHR): 121 bpm Max HR Achieved: 115 bpm % of APMHR: 80 Recovery HR: 95 bpm BP Resting BP: 110/65 mmHg Max BP: 147/60 mmHg Recovery BP: 158/64 mmHg ECG Resting ECG: Sinus Rhythm, LBBB Stress ECG: Sinus Rhythm, LBBB ST Change: None Arrhythmia: None Recovery ECG: Sinus Rhythm, LBBB Recovery ST Change: None Recovery Arrhythmia: None Clinical Reason for Termination: Completed protocol Exercise duration: 0 min sec Exercise capacity: 1 METs The patient had gastrointestinal side effects related to medication affect. No chest pain Lexiscan infusion. Nurse Comments pt too weak to walk on treadmill. pt had vomiting with lexiscan. caffiene ivp given with some relief. zofran 4 mg given with little relief. compazine 2.5 ivp given with complete releif Stress ECG Conclusion The baseline 12-lead EKG shows left bundle-branch block. EKGs obtained during and post Lexiscan infusion showed sinus rhythm with left bundle-branch block. No significant [place] [address] CARDIAC NUCLEAR IMAGING REPORT Name: DAVIDKIKIPRISCILA BRADY Room: [address]#: [id number] Admission: 12/17/18 Attend Phys: Boby Rogers, Discharge: Date of : 42 Date of Service: 12/19/18 1815 Report #: [id number] noted. Study Quality Study: Good Artifact: No artifact Study Data At rest, the left ventricular ejection fraction was 47%.. Post stress, the left ventricular ejection was 51%.. TID = 0.94. Perfusion Normal left ventricular perfusion. Wall Motion There is mild global hypokinesis as well as septal wall motion abnormalities. There is left ventricular systolic dyssynergy consistent with left bundle-branch block. Nuclear Conclusion ECG Findings: non-diagnostic Clinical Findings: negative for ischemia Nuclear Findings: negative for ischemia Exercise Capacity: not assessed Left Ventricular Function: abnormal Myocardial perfusion images showed no defect to suggest infarct or ischemia. There are global wall motion abnormalities as well as focal wall motion abnormalities noted likely consistent with underlying bundle branch block. This is not a high risk study. <Conclusion> The baseline 12-lead EKG shows left bundle-branch block. EKGs obtained during and post Lexiscan infusion showed sinus rhythm with left bundle-branch block. No significant stress-induced arrhythmias noted. <ELECTRONICALLY SIGNED> By: Seun Schwartz MD, FACC 12/19/181814 14 14 Seun Schwartz MD, FACC /INF
[2018-12-19 19:20] VITALS: BP 136/50
[2018-12-19 19:30] VITALS: BP 136/50
[2018-12-20 00:30] VITALS: BP 133/72
[2018-12-20 04:30] VITALS: BP 136/53
[2018-12-20 05:24] LABS: ABSOLUTE LYMPHOCYTES 0.6 thou/uL (0.8-5.3); ABSOLUTE MONOCYTES 0.3 thou/uL (0.0-1.2); ABSOLUTE NEUTROPHILS 10.4 thou/uL (1.6-8.1); BASOPHILS 0.1 %; HEMATOCRIT 40.6 % (37.0-47.0); HEMOGLOBIN 13.5 gm/dL (12.0-15.0); LYMPHOCYTES 5.3 %; MCH 30.2 pg (26.0-34.0); MCHC 33.2 g/dL (28.0-37.0); MONOCYTES 2.7 %; MPV 8.5 fl. (7.2-11.1); NUCLEATED RBCS 0 /100WBC; PLATELET COUNT* 214 thou/uL (150-400); POLYS 91.9 %; RBC 4.46 mil/uL (4.20-5.00); RDW-CV 13.6 % (10.5-14.5); WBC 11.3 thou/uL (4.0-11.0)
[2018-12-20 05:59] LABS: CALCIUM 9.4 mg/dL (8.5-10.1); POTASSIUM 4.7 mmol/L (3.5-5.1)
[2018-12-20 08:45] VITALS: BP 124/61
[2018-12-20 12:00] VITALS: BP 127/44
[2018-12-20 16:00] VITALS: BP 130/48
[2018-12-20 21:00] VITALS: BP 141/74
[2018-12-21 04:00] VITALS: BP 146/51
[2018-12-21 05:31] LABS: ABSOLUTE LYMPHOCYTES 0.5 thou/uL (0.8-5.3); ABSOLUTE MONOCYTES 0.3 thou/uL (0.0-1.2); ABSOLUTE NEUTROPHILS 8.5 thou/uL (1.6-8.1); BASOPHILS 0.1 %; HEMATOCRIT 39.4 % (37.0-47.0); HEMOGLOBIN 13.1 gm/dL (12.0-15.0); MCH 30.7 pg (26.0-34.0); MCHC 33.3 g/dL (28.0-37.0); MCV 92.2 fL (80.0-100.0); MONOCYTES 2.9 %; MPV 8.6 fl. (7.2-11.1); NUCLEATED RBCS 0 /100WBC; PLATELET COUNT* 188 thou/uL (150-400); RBC 4.27 mil/uL (4.20-5.00); RDW-CV 13.7 % (10.5-14.5); WBC 9.3 thou/uL (4.0-11.0)
[2018-12-21 05:58] LABS: CREATININE 1.8 mg/dL (0.6-1.3); MAGNESIUM 2.7 mg/dL (1.8-2.4); POTASSIUM 4.5 mmol/L (3.5-5.1)
[2018-12-21 07:57] VITALS: BP 182/74
[2018-12-21 12:16] VITALS: BP 134/53
[2018-12-21 16:00] VITALS: BP 143/79
[2018-12-21 20:00] VITALS: BP 169/65
[2018-12-22] VITALS: BP 138/47
[2018-12-22 04:00] VITALS: BP 144/60
[2018-12-22 05:10] LABS: ABSOLUTE LYMPHOCYTES 1.2 thou/uL (0.8-5.3); ABSOLUTE MONOCYTES 0.8 thou/uL (0.0-1.2); ABSOLUTE NEUTROPHILS 7.2 thou/uL (1.6-8.1); BASOPHILS 0.4 %; EOSINOPHILS 0.4 %; HEMATOCRIT 40.1 % (37.0-47.0); HEMOGLOBIN 13.3 gm/dL (12.0-15.0); LYMPHOCYTES 12.6 %; MCH 30.4 pg (26.0-34.0); MCHC 33.1 g/dL (28.0-37.0); MCV 91.8 fL (80.0-100.0); MONOCYTES 8.5 %; MPV 8.3 fl. (7.2-11.1); NUCLEATED RBCS 0 /100WBC; PLATELET COUNT* 185 thou/uL (150-400); POLYS 78.1 %; RBC 4.37 mil/uL (4.20-5.00); RDW-CV 13.6 % (10.5-14.5); WBC 9.2 thou/uL (4.0-11.0)
[2018-12-22 05:46] LABS: CALCIUM 9.1 mg/dL (8.5-10.1); CREATININE 1.7 mg/dL (0.6-1.3); POTASSIUM 4.1 mmol/L (3.5-5.1)
[2018-12-22 08:00] VITALS: BP 167/60
[2018-12-22 11:17] VITALS: BP 167/60
[2018-12-22 12:00] VITALS: BP 142/55
[2018-12-22 16:47] VITALS: BP 167/60
[2018-12-22] MEDS ORDERED: PREDNISONE 10 M10 M1 PO (17:26)
[2018-12-22] MEDS ORDERED: HUMALOG100 UNIT/1 SUBQ (17:28)
[2018-12-22] MEDS ORDERED: AUGMENTIN 875-1 EACH PO (17:29)
[2018-12-22] MEDS ORDERED: ALBUTEROL2.5 MG/31 INH (17:30)
== END 2018-12-22 18:01 | disposition home health service (06) | DRG 193 ==
LOC: M.ERS 10:26 → M.2W 11:22 → M.TBA-ER 11:22 → M.2W 14:58
PROVIDERS: Family Medicine; ADMIT Internal Medicine
DX: J18.9 Pneumonia, unspecified organism (principal); J96.21 Acute and chronic respiratory failure with hypoxia; J44.1 Chronic obstructive pulmonary disease with (acute) exacerbation; I50.42 Chronic combined systolic (congestive) and diastolic (congestive) heart failure; N18.4 Chronic kidney disease, stage 4 (severe); J44.0 Chronic obstructive pulmonary disease with (acute) lower respiratory infection; I13.0 Hypertensive heart and chronic kidney disease with heart failure and stage 1 through stage 4 chronic kidney disease, or unspecified chronic kidney disease; G30.9 Alzheimer's disease, unspecified; E11.22 Type 2 diabetes mellitus with diabetic chronic kidney disease; F02.80 Dementia in other diseases classified elsewhere, unspecified severity, without behavioral disturbance, psychotic disturbance, mood disturbance, and anxiety; I48.91 Unspecified atrial fibrillation; I25.10 Atherosclerotic heart disease of native coronary artery without angina pectoris; E78.5 Hyperlipidemia, unspecified; I25.5 Ischemic cardiomyopathy; Z90.49 Acquired absence of other specified parts of digestive tract; Z95.1 Presence of aortocoronary bypass graft; Z95.5 Presence of coronary angioplasty implant and graft; I25.2 Old myocardial infarction; Z86.711 Personal history of pulmonary embolism; Z82.49 Family history of ischemic heart disease and other diseases of the circulatory system; Z87.891 Personal history of nicotine dependence; Z91.19 Patient's noncompliance with other medical treatment and regimen; Z86.718 Personal history of other venous thrombosis and embolism; Z79.899 Other long term (current) drug therapy

== ENCOUNTER 2019-03-28 13:35 | Emergency (ER) | payer OTHER ==
[~2019-03-28] VITALS: Ht 152.4 cm; Wt 86.2 kg
[~2019-03-28 13:35] MED LIST changes: +ALBUTEROL2.5 MG/31 INH; +VITAMIN B125000 MCG PO; +ZYRTEC10 M5 PO
[2019-03-28] MEDS ORDERED: NORCO 5-325 TA1 EACH PO (15:05)
[2019-03-28 15:18] VITALS: BP 103/83
== END 2019-03-28 15:19 | disposition home or self-care (01) ==
LOC: M.ERS 13:35
DX: S83.91XA Sprain of unspecified site of right knee, initial encounter (principal); W01.10XA Fall on same level from slipping, tripping and stumbling with subsequent striking against unspecified object, initial encounter; Y93.89 Activity, other specified; Y92.89 Other specified places as the place of occurrence of the external cause; Y99.8 Other external cause status; J44.9 Chronic obstructive pulmonary disease, unspecified; I11.0 Hypertensive heart disease with heart failure; I50.9 Heart failure, unspecified; E11.9 Type 2 diabetes mellitus without complications; I48.91 Unspecified atrial fibrillation; G30.9 Alzheimer's disease, unspecified; F02.80 Dementia in other diseases classified elsewhere, unspecified severity, without behavioral disturbance, psychotic disturbance, mood disturbance, and anxiety; Z95.1 Presence of aortocoronary bypass graft; F17.210 Nicotine dependence, cigarettes, uncomplicated

== ENCOUNTER 2019-06-27 08:07 | Emergency (ER) | payer OTHER ==
[~2019-06-27] VITALS: Ht 152.4 cm; Wt 88.8 kg
[2019-06-27 08:26] LABS: ABSOLUTE BASOPHILS 0.1 thou/uL (0.0-0.2); ABSOLUTE EOSINOPHILS 0.2 thou/uL (0.0-0.7); ABSOLUTE LYMPHOCYTES 2.3 thou/uL (0.8-5.3); ABSOLUTE MONOCYTES 0.8 thou/uL (0.0-1.2); ABSOLUTE NEUTROPHILS 4.2 thou/uL (1.6-8.1); BASOPHILS 0.9 %; EOSINOPHILS 2.6 %; HEMATOCRIT 41.4 % (37.0-47.0); HEMOGLOBIN 13.9 gm/dL (12.0-15.0); LYMPHOCYTES 30.9 %; MCH 30.8 pg (26.0-34.0); MCHC 33.7 g/dL (28.0-37.0); MCV 91.2 fL (80.0-100.0); MONOCYTES 10.4 %; MPV 7.5 fl. (7.2-11.1); NUCLEATED RBCS 0 /100WBC; PLATELET COUNT* 231 thou/uL (150-400); POLYS 55.2 %; RBC 4.53 mil/uL (4.20-5.00); RDW-CV 13.5 % (10.5-14.5); WBC 7.5 thou/uL (4.0-11.0)
[2019-06-27 08:37] LABS: ANION GAP 8 mmol/L (7-16); BUN 38 mg/dL (7-18); CALCIUM 8.7 mg/dL (8.5-10.1); CHLORIDE 101 mmol/L (98-107); CO2 31 mmol/L (21-32); CREATININE 2.1 mg/dL (0.6-1.3); GLUCOSE 309 mg/dL (70-99); POTASSIUM 3.9 mmol/L (3.5-5.1); SODIUM 140 mmol/L (136-145)
[2019-06-27 08:39] LABS: APTT 25.9 Seconds (25.0-31.3); PROTIME 10.5 Seconds (9.20-11.50)
[2019-06-27 08:48] LABS: URINE BILIRUBIN NEGATIVE (Negative); URINE BLOOD TRACE (Negative); URINE CLARITY CLEAR; URINE COLOR YELLOW; URINE GLUCOSE-RANDOM 1+ (Negative); URINE KETONES NEGATIVE (Negative); URINE LEUKOCYTES-REFLEX NEGATIVE (Negative); URINE NITRITE-REFLEX NEGATIVE (Negative); URINE PROTEIN 2+ (Negative); URINE SPECIFIC GRAVITY 1.015 (1.005-1.030); URINE UROBILINOGEN 0.2 E.U./dl (0.2-1.0)
[2019-06-27 08:49] LABS: SALICYLATE < 2.8 mg/dL (2.8-20.0)
[2019-06-27 08:51] LABS: ALBUMIN 3.4 g/dL (3.4-5.0); ALKALINE PHOSPHATASE 126 U/L (46-116); CK-MB MASS 1.5 ng/mL (<0.5-3.6); LIPASE 169 U/L (73-393); NT-PRO BRAIN NAT PEPTIDE 2920 pg/mL (<300); SGOT 12 U/L (15-37); SGPT 14 U/L (30-65); TOTAL BILIRUBIN 0.6 mg/dL (<0.1-1.0); TOTAL PROTEIN 7.1 g/dL (6.4-8.2); TROPONIN-I LEVEL <0.06 ng/mL (<0.06)
[2019-06-27 08:52] LABS: ACETAMINOPHEN < 10 ug/mL (10-30); ALCOHOL < 2 mg/dL (<10)
[2019-06-27 08:58] LABS: CASTS None Seen /LPF (None Seen); CRYSTALS None Seen /LPF (None Seen); MUCUS 4-6 Moderate strn/LPF (None Seen); SQUAMOUS 4-10 Moderate /LPF (0-3); URINE RBC 0-2 Rare /HPF (0-2); URINE WBC-REFLEX 0-5 Rare /HPF (0-5)
[2019-06-27 09:05] LABS: AMP/METHAMP Negative (Negative); BARBITURATES Negative (Negative); BENZODIAZEPINES Negative (Negative); COCAINE Negative (Negative); METHADONE Negative (Negative); OPIATES Negative (Negative); PCP Negative (Negative); THC Negative (Negative)
[2019-06-27] MEDS ORDERED: NICOTINE TRANSD21 M1 (09:24)
[2019-06-27] MEDS ORDERED: LANTUS SOL100 UNIT/1 IM (12:11)
[2019-06-27 13:08] VITALS: BP 160/78
[2019-06-27] MEDS ORDERED: PREDNISONE 20 M20 M1 PO (13:09)
--- NOTE | 2019-06-29 07:32 | EKG ---
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: NIDHI : 1940 Requested By: Stanley Chaparro Order Number: [id number] MD: Lamin Simpson Measurements Intervals [place] Rate: 88 P: 56 NM: 163 QRS: -4 QRSD: 150 T: 176 QT: 408 QTc: 494 Interpretive Statements Sinus rhythm Left bundle branch block Baseline wander in lead(s) II,III,aVF Compared to ECG 12/18/2018 06:20:29 No significant changes Electronically Signed On 06-29-2019 7:32:28 CDT by Lamin Simpson [email or web address] <ELECTRONICALLY SIGNED> By: Lamin Simpson MD, [facility] 06/29/19 0732 1 1 Lamin Simpson MD, [facility] /EPI
== END 2019-06-27 13:15 | disposition home or self-care (01) ==
LOC: M.ERS 08:07
PROVIDERS: Family Medicine
DX: R07.89 Other chest pain (principal); F32.9 Major depressive disorder, single episode, unspecified; J44.9 Chronic obstructive pulmonary disease, unspecified; I11.0 Hypertensive heart disease with heart failure; I50.9 Heart failure, unspecified; I48.91 Unspecified atrial fibrillation; E11.9 Type 2 diabetes mellitus without complications; F17.210 Nicotine dependence, cigarettes, uncomplicated; Z90.49 Acquired absence of other specified parts of digestive tract; Z95.1 Presence of aortocoronary bypass graft; Z86.711 Personal history of pulmonary embolism; Z79.4 Long term (current) use of insulin; Z79.899 Other long term (current) drug therapy

== ENCOUNTER 2020-03-17 18:51 | Observation (INO) | payer OTHER ==
[~2020-03-17] VITALS: Ht 152.4 cm; Wt 83.6 kg
[~2020-03-17 18:51] MED LIST changes: +LANTUS SOL100 UNIT/1 IM; +NICOTINE TRANSD21 M1
[2020-03-17 18:56] VITALS: BP 162/71
[2020-03-17 19:38] LABS: ABSOLUTE BASOPHILS 0.1 thou/uL (0.0-0.2); ABSOLUTE EOSINOPHILS 0.2 thou/uL (0.0-0.7); ABSOLUTE MONOCYTES 0.9 thou/uL (0.0-1.2); ABSOLUTE NEUTROPHILS 4.8 thou/uL (1.6-8.1); BASOPHILS 1.3 %; EOSINOPHILS 1.7 %; HEMATOCRIT 40.5 % (37.0-47.0); HEMOGLOBIN 13.7 gm/dL (12.0-15.0); LYMPHOCYTES 33.2 %; MCHC 33.9 g/dL (28.0-37.0); MCV 91.6 fL (80.0-100.0); MPV 8.1 fl. (7.2-11.1); NUCLEATED RBCS 0 /100WBC; PLATELET COUNT* 214 thou/uL (150-400); POLYS 53.8 %; RBC 4.42 mil/uL (4.20-5.00); RDW-CV 15.4 % (10.5-14.5); WBC 8.9 thou/uL (4.0-11.0)
[2020-03-17 19:52] LABS: APTT 25.5 Seconds (25.0-31.3); PROTIME 10.7 Seconds (9.20-11.50)
[2020-03-17 19:56] LABS: CALCIUM 9.4 mg/dL (8.5-10.1); CREATININE 2.5 mg/dL (0.6-1.3); POTASSIUM 4.3 mmol/L (3.5-5.1)
[2020-03-17 20:03] LABS: ALBUMIN 3.5 g/dL (3.4-5.0); TOTAL BILIRUBIN 1.3 mg/dL (<0.1-1.0); TOTAL PROTEIN 6.7 g/dL (6.4-8.2)
[2020-03-17 23:14] VITALS: BP 178/74
[2020-03-17 23:30] VITALS: BP 170/74
[2020-03-18 04:00] VITALS: BP 100/61
[2020-03-18] MEDS ORDERED: SINGULAIR 10 MG10 MG PO (05:21)
--- NOTE | 2020-03-18 05:46 | NUR ---
REPORT RECIEVED FROM ER. PT ORIENTED TO ROOM, CALL LIGHT SHOWN, FALL AGREEMENT WENT OVER, PT STATED UNDERSTANDING. ADMISSION DOCUMENTED. NO REPORTS OF PAIN. PT ON 2L NC, PT STATES THAT SHE WEARS A BIPAP AT HOME. PT ALSO STATES THAT SHE WEARS DENTURES AND BILAT HEARING AIDS BUT HER DAUGHTER WOULD NOT LET HER BRING THEM HER DAUGHTER WAS AFRAID SHE WOULD LOOSE THEM. PT A&OX4. WILL CONTINUE WITH PLAN OF CARE.
[2020-03-18 08:00] VITALS: BP 139/65
[2020-03-18 09:59] LABS: CHOLESTEROL 164 mg/dL (<200); HDL CHOLESTEROL 41 mg/dL (>40); LDL CHOLESTEROL 83 mg/dL (<100); SERUM ASSESSMENT Clear; TRIGLYCERIDE 202 mg/dL (<150); VLDL 40 mg/dL (<40)
[2020-03-18] MEDS ORDERED: AMOX TR-K CLV1 EAC3 PO (11:47)
[2020-03-18] MEDS ORDERED: PREDNISONE 10 M10 MG PO (11:47)
[2020-03-18 12:00] VITALS: BP 143/58
--- NOTE | 2020-03-18 12:55 | EKG ---
[place] [address] ELECTROCARDIOGRAM REPORT Name: KIKI HERNANDEZ Room: [address] M.R.#: [id number] Admission: 03/17/20 Attend Phys: Marko Christopher Discharge: Date of : 42 Date of Service: 03/17/201856 Report #: [id number] THIS REPORT FOR: //name// [facility] ED Test Date: 2020-03-17 Test Time: 18:57:14 Pat Name: KIKI HERNANDEZ Department: Room: [facility] Gender: F Director Of Program Management: CCD : 1940 Requested By: Stanley Chaparro Order Number: [id number] MD: Lamin Simpson Measurements Intervals [place] Rate: 91 P: [place]: QRS: -8 QRSD: 146 T: 183 QT: 400 QTc: 493 Interpretive Statements sinus rhythm Left bundle branch block Compared to ECG 06/27/2019 08:12:32 no change Electronically Signed On 03-18-2020 12:53:15 CDT by Lamin Simpson [email or web address] <ELECTRONICALLY SIGNED> By: Lamin Simpson MD, FACC 03/18/20 1253 1857 1857 Lamin Simpson MD, [facility] /EPI
--- NOTE | 2020-03-18 13:07 | 2DMMODE ---
[place] [address] 2 D/M-MODE ECHOCARDIOGRAM Name: KIKI HERNANDEZ Room: [address] Emiliano Whitehead#: [id number] Admission: 03/17/20 Attend Phys: Marko Christopher Discharge: Date of : 42 Date of Service: 03/18/20 1305 Report #: [id number] THIS REPORT FOR: cc: Amy Hess,Amy Nelson,Lamin Manuel MD [facility] ~ APPROVED REPORT Study performed: 03/18/2020 10:01:45 EXAM: Comprehensive 2D, Doppler, and color-flow Echocardiogram Patient Location: In-Patient BSA: 1.80 HR: 93 bpm BP: 100/61 mmHg Other Information Study Quality: Fair Indications CAD Chest Pain 2D Dimensions IVSd: 17.05 (7-11mm) LVOT Diam: 17.33 (18-24mm) LVDd: 48.43 mm PWd: 12.64 (7-11mm) Ascending Ao: 26.37 (22-36mm) LVDs: 42.97 (25-40mm) Aortic Root: 25.78 mm Volumes Left Atrial Volume (Systole) LA ESV Index: 33.20 mL/m2 Aortic Valve AoV Peak Salomon.: 1.13 m/s AO Peak Gr.: 5.10 mmHg LVOT Max P.05 mmHg AO Mean Gr.: 2.67 mmHg LVOT Mean P.43 mmHg LVOT Max V: 0.87 m/s AO V2 VTI: 22.82 cm LVOT Mean V: 0.55 m/s KEVIN (VTI): 1.85 cm2 LVOT V1 VTI: 17.92 cm AI Tyrrell: 2.43 m/s2 AI PHT: 411.51 [place] [address] 2 D/M-MODE ECHOCARDIOGRAM Name: KIKI HERNANDEZ Room: [address] MSandiR.#: [id number] Admission: 03/17/20 Attend Phys: Marko Christopher Discharge: Date of : 42 Date of Service: 03/18/20 1305 Report #: [id number] Mitral Valve E/A Ratio: 0.71 MV Decel. Time: 140.89 ms MV E Max Salomon.: 0.71 m/s MV PHT: 40.86 ms MVA (PHT): 5.38 cm2 TDI E/Lateral E': 7.10 E/Medial E': 11.83 Medial E' Salomon.: 0.06 m/s Lateral E' Salomon.: 0.10 m/s Pulmonary Valve PV Peak Salomon.: 1.08 m/s PV Peak Gr.: 4.66 mmHg Tricuspid Valve RAP Estimate: 5.00 mmHg TR Peak Gr.: 41.65 mmHg RVSP: 46.65 mmHg PA Pressure: 46.65 mmHg Left Ventricle The left ventricle is normal size. There is global hypokinesis of the left ventricle. Mild concentric left ventricular hypertrophy. Left ventricular systolic function is severely decreased. LVEF is 25-30%. Right Ventricle The right ventricle is normal size. The right ventricular systolic function is normal. Atria Left atrium is mildly dilated. The right atrium size is normal. Aortic Valve The Aortic valve is sclerotic. Mild aortic regurgitation. There is no aortic valvular stenosis. Mitral Valve There is mitral annular calcification. Mild to moderate mitral regurgitation. No evidence of mitral valve stenosis. Tricuspid Valve The tricuspid valve is normal in structure. Mild tricuspid regurgitation. estimated pa pressure 35 [place] [address] 2 D/M-MODE ECHOCARDIOGRAM Name: KIKI HERNANDEZ [address] [id number] Admission: 03/17/20 Attend Phys: Marko Christopher Discharge: Date of : 42 Date of Service: 03/18/20 1305 Report #: [id number] Pulmonic Valve The pulmonary valve is normal in structure. Trace pulmonic regurgitation. Great Vessels The aortic root is normal in size. IVC is not well visualized. Pericardium There is no pericardial effusion. <Conclusion> Mild concentric left ventricular hypertrophy. LVEF is 25-30%. Left atrium is mildly dilated. The Aortic valve is sclerotic. Mild aortic regurgitation. Mild to moderate mitral regurgitation. Mild tricuspid regurgitation. estimated pa pressure 35 mm Hg <ELECTRONICALLY SIGNED> By: Lamin Simpson MD, [facility] 03/18/20 1305 1305 1305 Lamin Simpson MD, FACC /INF
--- NOTE | 2020-03-18 14:37 | NUR ---
CM spoke with Pt's dtr via phone. Pt resides at home with her 2 dtrs that assist as needed, Pt is never home alone. Pt is independent with ADLs, but needs supervision. Pt has a walker, cane and wc for mobility. Pt sleeps with a cpap. Per dtr, Pt carries a dx of dementia. Hx of HH. No hx of SNF. Goal is home at ca. Following.
[2020-03-18 16:09] VITALS: BP 136/46
--- NOTE | 2020-03-18 17:57 | NUR ---
this patient complains of cehst pain after dinner. pt brought back in bed and ekg was performed at bedside. sr bbb. there is a discharge order on paper in pt chart if okl with cardio. but this nurse talked to dr Simpson this pm at 1755 and was told to keep patient in for more iv lasix. will continue to monito pt.
[2020-03-18 20:00] VITALS: BP 168/66
[2020-03-19] VITALS (7 sets, daily range): BP systolic 134–152; BP diastolic 50–72
--- NOTE | 2020-03-19 05:36 | NUR ---
ASSUMED PT CARE AT APPROX 1930.PT IS AWAKE AND ORIENTED X4. PT IS TRACING SR BBB ON THE CIAIO LUMITE INJECTOR. CRITICAL CAPILLARY BLOOD SUGAR REGISTERED "HI", LAB GLUCOSE IS 576. INSULIN GIVEN PER MAR PER DR. DEAN. REPEAT BLOOD GLUCOSE RECORDED. WILL CONTINUE TO MONITOR PT. HIGH FALL PRECAUTIONS IN PLACE. CALL LIGHT WITHIN REACH.
[2020-03-19 06:16] LABS: CREATININE 2.1 mg/dL (0.6-1.3); MAGNESIUM 2.2 mg/dL (1.8-2.4)
--- NOTE | 2020-03-19 16:16 | NUR ---
ASSUMED PT CARE REPORT RECEIVED FROM NURSE. PT SI AOX4.FORGETFUL . ON 2 L NC. O2 SATURATION IS 95%. OXYGEN WAS WEANED OFF TODAY. ACCUCHECK, INSULIN GIVEN NEEDED. PER RUBBER MILL TENDER PT IS TO STAY IN HOPITAL ONE MORE DAY. I&O IS INNACURATE DUE TO PT HAVING A BOWEL MOVEMENT WHILE URINATING. PT INTAKE IS ADEQUATE. TRACING AFIB BBB ON FRONT OF HOUSE MANAGER. PT UP TO THE RECLINER WITH THIS NURSE'S ASSISTANCE. NO FURTHER COMPLAINT. WILL CONTINUE TO MONITOR PATIENT.
[2020-03-20] VITALS: BP 139/45
[2020-03-20 04:00] VITALS: BP 134/56
--- NOTE | 2020-03-20 05:29 | NUR ---
ASSUMED PT CARE AT APPROX 1930. PT IS AWAKE AND ORIENTED X4. PT IS TRACING SR BBB. ASSESSMENT DONE AND CHARTED. NO DESATURATIONS NOTED ON ROOM AIR. PT APPEARED LETHARGIC AND SWEATY AT AROUND MIDNIGHT, PT'S BLOOD SUGAR WAS 44, ORANGE JUICE AND SOME CRACKERS GIVEN. REPEAT BLOOD SUGAR IS 167, PT IS MORE AWAKE AND STATED SHE FEELS FINE. WILL CONTINUE TO MONITOR PT.
[2020-03-20 05:55] LABS: CREATININE 2.1 mg/dL (0.6-1.3); POTASSIUM 4.3 mmol/L (3.5-5.1)
[2020-03-20 08:00] VITALS: BP 168/67
[2020-03-20 09:20] VITALS: BP 168/67
[2020-03-20] MEDS ORDERED: SPIRONOLACTONE25 M1 PO (12:39)
--- NOTE | 2020-03-20 13:28 | NUR ---
ASSUMED PT CARE. REPORT RECEIVED FROM NURSE , PT IS AOX4. ON RA. SR BBB ON ENTRY LEVEL CHEMIST.PT AMBULATED IN HALLWAY WITH THIS NURSE'S HELP WITHOUT NEED OF OXYGEN. ACCUCHECK. CARBOHYDRATE CONTROL DIET. CALL LIGHT WITHIN REACH. PT DISCHARGED AT 1320 ACCOMPANIED BY THIS NURSE. BELONGINGS BROUGHT ALONG. DISCHARGE INSTRUCTIONS GIVEN TO PT. PT DAUGHTER PICKED HER UP. SCRIPTS GIVEN.
--- NOTE | 2020-03-22 15:21 | CON ---
[address] [address] CONSULTATION Name: KIKI EHRNANDEZ Room: [address] Emiliano Whitehead#: [id number] Admission: 03/17/20 Attend Phys: Adithya Espitia Discharge: 03/20/20 Date of : 42 Report #: [id number] THIS REPORT FOR: //name// cc: Amy Hess Anna S. DO THIS REPORT FOR: //name// CC: Amy Blank DATE OF SERVICE: 03/18/2020 CARDIOLOGY CONSULTATION HISTORY OF PRESENT ILLNESS: The patient is a 79-year-old single white female who was admitted yesterday complaining of shortness of breath. The patient has an extensive past medical history. She apparently has a previous history of coronary artery stenting. She underwent coronary artery bypass surgery years ago. She has been followed by my partner, Dr. Dima Weber. She apparently had a heart catheterization by Dr. Weber in 10/2016 which showed a patent LOPEZ graft to the LAD. The circumflex had only 30% narrowing and a stent. The right coronary had 30% narrowing and a stent. No intervention was performed. She had an echocardiogram in 11/2018 that showed an ejection fraction of 50% with inferior wall hypokinesis. Nuclear stress test in 2018 showed no evidence of ischemia with an ejection fraction of 47%. Previous carotid Doppler study showed no significant stenosis. She is not very active because of her large size and age. She was last here at [facility] in 12/2018 with exacerbation of her COPD. She has a history of dementia and she is very hard of hearing. There are no family members available at this time. The patient apparently was last seen in the Cardiology Clinic in January and no changes were made in her medications. She was brought to the Emergency Room yesterday by family members. She had been short of breath and noticed some chest tightness. She has noticed some edema. She denied palpitations, syncope, or medical noncompliance. She denied any fever or cough. She has sleep apnea, uses CPAP. She is admitted for further evaluation and treatment. PAST MEDICAL HISTORY: Otherwise significant for hypertension, hyperlipidemia, sleep apnea, and diabetes. MEDICATIONS: Her medications on admission include Lasix, carvedilol, Plavix, Cymbalta, Amaryl, Lantus, Imdur, Singulair, Protonix, and simvastatin. ALLERGIES: She has no known drug allergies. PAST SURGICAL HISTORY: She has had cataract extraction, cholecystectomy, [place] [address] CONSULTATION Name: KIKI HERNANDEZ Room: [address] Emiliano Whitehead#: [id number] Admission: 03/17/20 Attend Phys: Adithya Espitia Discharge: 03/20/20 Date of : 42 Report #: [id number] repair, and hysterectomy. FAMILY HISTORY: Negative for heart disease. SOCIAL HISTORY: She is , lives with her daughter in [place]. She uses a walker. Quit smoking a year ago. REVIEW OF SYSTEMS: There is no history of stroke. There is no history of bleeding or liver disease. She has chronic kidney disease. No history of cancer. PHYSICAL EXAMINATION: GENERAL: Revealed an obese elderly female lying in bed. She appeared in no acute distress. VITAL SIGNS: She is 190 pounds. She had a blood pressure of 150/90, pulse 80, and she is afebrile. HEENT: She is anicteric. Conjunctivae are pink. Mucous membranes moist. NECK: Veins difficult to assess due to obesity. CHEST: Clear to auscultation. CARDIOVASCULAR: Regular rate and rhythm. ABDOMEN: Obese. EXTREMITIES: Had no edema. SKIN: Cool and dry. NEUROLOGIC: Nonfocal. Her ECG on admission showed a sinus rhythm with a left bundle branch block, which was noted to be old. Her workup in the Emergency Room showed normal heart size, no infiltrate, no pulmonary edema. LABORATORY DATA: Sodium 140, BUN 26, creatinine is 2.5, glucose 330. Her liver function studies were normal. Troponins all 0.06. BNP 1850. Her white blood cell count was 8.9 and hemoglobin 13.7. IMPRESSION AND RECOMMENDATIONS: 1. Shortness of breath, possible chronic obstructive pulmonary disease. 2. Hard of hearing. 3. Chronic kidney disease. 4. Mild cardiomyopathy. The patient is on a beta-kyle and nitrates. I would not recommend an MORRIS inhibitor nor ARB because of chronic kidney disease. 5. Diabetes. 6. Chronic kidney disease. [address] [place] [address] CONSULTATION Name: KIKI HERNANDEZ Room: [address] Emiliano Whitehead#: [id number] Admission: 03/17/20 Attend Phys: Adithya Espitia Discharge: 03/20/20 Date of : 42 Report #: [id number] 7. Sleep apnea. 8. Obesity. <ELECTRONICALLY SIGNED> By: Lamin Simpson MD, FACC 03/22/20 1521 0849 0920Daviadithya Simpson MD, FACC /nt
--- NOTE | 2020-03-22 16:05 | EKG ---
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
== END 2020-03-20 13:25 | disposition home or self-care (01) ==
LOC: M.ERS 18:51 → M.2W 21:13 → M.TBA-ER 21:13 → M.2W 23:20
PROVIDERS: Family Medicine; Internal Medicine Cardiovascular Disease; ADMIT Internal Medicine
DX: R07.89 Other chest pain (principal); I48.91 Unspecified atrial fibrillation; R06.02 Shortness of breath; H91.90 Unspecified hearing loss, unspecified ear; E11.22 Type 2 diabetes mellitus with diabetic chronic kidney disease; I13.0 Hypertensive heart and chronic kidney disease with heart failure and stage 1 through stage 4 chronic kidney disease, or unspecified chronic kidney disease; N18.9 Chronic kidney disease, unspecified; I50.23 Acute on chronic systolic (congestive) heart failure; Z79.4 Long term (current) use of insulin; E66.9 Obesity, unspecified; G47.30 Sleep apnea, unspecified; I26.99 Other pulmonary embolism without acute cor pulmonale; G30.9 Alzheimer's disease, unspecified; F02.80 Dementia in other diseases classified elsewhere, unspecified severity, without behavioral disturbance, psychotic disturbance, mood disturbance, and anxiety; E78.5 Hyperlipidemia, unspecified; Z90.710 Acquired absence of both cervix and uterus; Z90.49 Acquired absence of other specified parts of digestive tract; Z87.19 Personal history of other diseases of the digestive system; Z98.49 Cataract extraction status, unspecified eye

== ENCOUNTER → 2020-08-16 | Outpatient (CLI) | payer OTHER ==
[~2020-08-16] MED LIST changes: +AMOX TR-K CLV1 EAC3 PO; +SINGULAIR 10 MG10 MG PO; +SPIRONOLACTONE25 M1 PO
[2020-08-16 12:53] LABS: CALCIUM 9.4 mg/dL (8.5-10.1); CREATININE 2.3 mg/dL (0.6-1.3); POTASSIUM 4.6 mmol/L (3.5-5.1)
== END ==
LOC: M.LAB 12:18
PROVIDERS: ATTEND Nurse Practitioner
DX: I50.22 Chronic systolic (congestive) heart failure (principal)

== ENCOUNTER → 2020-12-23 | Outpatient (CLI) | payer OTHER ==
[2020-12-23 12:21] LABS: ALBUMIN 3.8 g/dL (3.4-5.0); CALCIUM 9.4 mg/dL (8.5-10.1); CREATININE 2.6 mg/dL (0.6-1.3); PHOSPHORUS* 4.8 mg/dL (2.5-4.9); POTASSIUM 4.4 mmol/L (3.5-5.1)
[2020-12-23 12:25] LABS: CALCIUM 9.2 mg/dL (8.5-10.1); CREATININE 2.6 mg/dL (0.6-1.3); PHOSPHORUS* 4.8 mg/dL (2.5-4.9)
== END ==
LOC: M.LAB 11:36
PROVIDERS: ATTEND Internal Medicine Nephrology
DX: N18.4 Chronic kidney disease, stage 4 (severe) (principal)

== ENCOUNTER → 2021-01-20 | Outpatient (CLI) | payer OTHER | LOC: M.CT 07:43 | PROVIDERS: ATTEND Internal Medicine Gastroenterology | DX: I77.810 Thoracic aortic ectasia (principal); N28.89 Other specified disorders of kidney and ureter ==

== ENCOUNTER 2021-03-29 09:24 | Inpatient (IN) | payer OTHER ==
[~2021-03-29] VITALS: Ht 152.4 cm; Wt 91.1 kg
[2021-03-29 09:33] VITALS: BP 149/71
[2021-03-29 10:21] LABS: ABSOLUTE LYMPHOCYTES 1.2 thou/uL (0.8-5.3); ABSOLUTE MONOCYTES 1.2 thou/uL (0.0-1.2); ABSOLUTE NEUTROPHILS 6.2 thou/uL (1.6-8.1); BASOPHILS 0.4 %; EOSINOPHILS 0.3 %; HEMATOCRIT 30.9 % (37.0-47.0); HEMOGLOBIN 10.5 gm/dL (12.0-15.0); LYMPHOCYTES 13.4 %; MCH 33.4 pg (26.0-34.0); MCHC 34.1 g/dL (28.0-37.0); MCV 97.7 fL (80.0-100.0); MONOCYTES 13.6 %; MPV 7.6 fl. (7.2-11.1); NUCLEATED RBCS 0 /100WBC; PLATELET COUNT* 181 thou/uL (150-400); POLYS 72.3 %; RBC 3.16 mil/uL (4.20-5.00); WBC 8.6 thou/uL (4.0-11.0)
--- NOTE | 2021-03-29 10:24 | NUR ---
IN INSERTED BY SABRINA FAM.
[2021-03-29 10:36] LABS: CALCIUM 8.9 mg/dL (8.5-10.1); CREATININE 2.1 mg/dL (0.6-1.3); POTASSIUM 3.5 mmol/L (3.5-5.1)
[2021-03-29 10:46] LABS: ALBUMIN 3.1 g/dL (3.4-5.0); TOTAL BILIRUBIN 1.6 mg/dL (<0.1-1.0); TOTAL PROTEIN 6.5 g/dL (6.4-8.2)
[2021-03-29 15:03] VITALS: BP 159/57
[2021-03-29 15:15] VITALS: BP 133/94
--- NOTE | 2021-03-29 16:10 | EKG ---
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: ISHA : 1940 Requested By: Vipin Razo Order Number: [id number] MD: Lamin Simpson Measurements Intervals [place] Rate: 89 P: 12 NV: 121 QRS: -9 QRSD: 158 T: 187 QT: 385 QTc: 469 Interpretive Statements Sinus rhythm Atrial premature complexes Left bundle branch block Baseline wander in lead(s) II,III,aVR,aVF Compared to ECG 03/18/2020 17:50:38 Atrial premature complex(es) now present Electronically Signed On 03-29-2021 16:10:31 CDT by Lamin Simpson [email or web address] <ELECTRONICALLY SIGNED> By: Lamin Simpson MD, [facility] 03/29/21 1610 0937 Lamin Simpson MD, [facility] /EPI
--- NOTE | 2021-03-29 16:50 | 2DMMODE ---
[place] [address] 2 D/M-MODE ECHOCARDIOGRAM Name: KIKI HERNANDEZ Room: [address] IN .R.#: [id number] Admission: 03/29/21 Attend Phys: Marko Christopher Discharge: Date of : 42 Date of Service: 03/29/21 1650 Report #: [id number] THIS REPORT FOR: cc: Declan Spaulding MD, Jonathan MD Blick,Lamin Manuel MD [facility] ~ APPROVED REPORT Study performed: 03/29/2021 16:09:11 EXAM: Comprehensive 2D, Doppler, and color-flow Echocardiogram Patient Location: In-Patient Room #: [facility] Status: routine BSA: 1.87 HR: 76 bpm BP: 156/66 mmHg Rhythm: NSR Other Information Study Quality: Adequate Indications Congestive Heart Failure 2D Dimensions IVSd: 10.76 (7-11mm) LVOT Diam: 19.54 (18-24mm) LVDd: 53.14 mm PWd: 11.04 (7-11mm) Ascending Ao: 23.78 (22-36mm) LVDs: 40.67 (25-40mm) Aortic Root: 27.84 mm Volumes Left Atrial Volume (Systole) LA ESV Index: 40.00 mL/m2 Aortic Valve AoV Peak Salomon.: 1.61 m/s AO Peak Gr.: 10.33 mmHg LVOT Max P.12 mmHg AO Mean Gr.: 5.79 mmHg LVOT Mean P.59 mmHg LVOT Max V: 0.88 m/s AO V2 VTI: 34.82 cm LVOT Mean V: 0.58 m/s KEVIN (VTI): 1.79 cm2 LVOT V1 VTI: 20.75 cm AI White: 3.73 m/s2 [place] [address] 2 D/M-MODE ECHOCARDIOGRAM Name: KIKI HERNANDEZHLEEN Room: [address] IN M.R.#: [id number] Admission: 03/29/21 Attend Phys: Marko Christopher Discharge: Date of : 42 Date of Service: 03/29/21 1650 Report #: [id number] AI PHT: 313.24 ms Mitral Valve E/A Ratio: 1.52 MV Decel. Time: 192.69 ms MV E Max Salomon.: 1.47 m/s MV PHT: 55.88 ms MVA (PHT): 3.94 cm2 TDI E/Lateral E': 13.36 E/Medial E': 18.38 Medial E' Salomon.: 0.08 m/s Lateral E' Salomon.: 0.11 m/s Pulmonary Valve PV Peak Salomon.: 1.26 m/s PV Peak Gr.: 6.31 mmHg Tricuspid Valve RAP Estimate: 5.00 mmHg TR Peak Gr.: 53.30 mmHg RVSP: 58.00 mmHg PA Pressure: 58 mmHg Left Ventricle Left ventricle is mildly dilated. There is global hypokinesis of the left ventricle. There is normal left ventricular wall thickness. Left ventricular systolic function is moderately decreased. LVEF is 35-40%. The left ventricular diastolic function is normal. Right Ventricle The right ventricle is normal size. The right ventricular systolic function is normal. Atria Left atrium is mildly dilated. The right atrium size is normal. Aortic Valve Mild aortic valve sclerosis. Mild aortic regurgitation. There is no aortic valvular stenosis. Mitral Valve The mitral valve is normal in structure. Mild mitral annular calcification. Mild mitral regurgitation. No evidence of mitral valve stenosis. [place] [address] 2 D/M-MODE ECHOCARDIOGRAM Name: KIKI HERNANDEZ Room: [address]#: [id number] Admission: 03/29/21 Attend Phys: Marko Christopher Discharge: Date of : 42 Date of Service: 03/29/21 1650 Report #: [id number] The tricuspid valve is normal in structure. Mild tricuspid regurgitation. estimated pa pressure 55 mm Hg Pulmonic Valve The pulmonary valve is normal in structure. There is no pulmonic valvular regurgitation. Great Vessels The aortic root is normal in size. IVC is normal in size and collapses >50% with inspiration. Pericardium There is no pericardial effusion. <Conclusion> Left ventricle is mildly dilated. LVEF is 35-40%. Left atrium is mildly dilated. Mild aortic regurgitation. Mild mitral regurgitation. Mild tricuspid regurgitation. estimated pa pressure 55 mm Hg <ELECTRONICALLY SIGNED> By: Lamin Simpson MD, [facility] 03/29/211649 49 49 Lamin Simpson MD, FACC /INF
[2021-03-29] MEDS ORDERED: SERTRALINE HCL100 MG PO (18:02)
[2021-03-29] MEDS ORDERED: LIPITOR40 MG PO (18:02)
[2021-03-29] MEDS ORDERED: ALLOPURINOL 10100 M3 PO (18:02)
[2021-03-29] MEDS ORDERED: RANOLAZINE ER500 MG PO (18:06)
[2021-03-29] MEDS ORDERED: MUCINEX600 MG PO (18:08)
[2021-03-29] MEDS ORDERED: HUMALOG100 UNIT/2 SUBQ (18:09)
--- NOTE | 2021-03-29 18:45 | NUR ---
PT ADMITTED TO ROOM 220 VIA CART FROM ED AT APPROX 1515, REPORT RECEIVED FROM SABRINA RUGGIERO. PT AOX4, LETHARGIC, ANSWERED A FEW OF MY QUESTIONS BETWEEN FALLING ASLEEP AND THEN WAS LESS ROUSABLE AND HARD TO UNDERSTAND WHEN SHE WOULD WAKE UP DUE TO STILL BEING HALF ASLEEP. PT'S DAUGHTER CALLED AND STATES SHE WAS AWAKE ALL LAST NIGHT SO THIS EXPLAINS THE SLEEPINESS TODAY. PT UNABLE TO ANSWER ALL OF ADMISSION QUESTIONS R/T SLEEPINESS SO SOME QUESTIONS ANSWERED BY DAUGHTER AND MARGARITA SHAH. PT HOME MEDS RECONCILED FROM PT'S HOME MED LIST IN HER PURSE AND CALLING HER PHARMACY. PT HAS HX FALLS AT HOME AND BRUISING ON RT MELO AND HIP R/T FALLS REPORTED BY PT AND DAUGHTER. PT ORIENTED TO ROOM AND CALL LIGHT, UP W/ 1 AND A WALKER, CALL LIGHT W/IN REACH.
[2021-03-30 00:26] VITALS: BP 132/44
[2021-03-30 04:07] LABS: GLYCOHEMOGLOBIN (HGB A1C) 7.7 % (4.8-5.6)
[2021-03-30 04:14] LABS: HEMATOCRIT 31.6 % (37.0-47.0); HEMOGLOBIN 10.8 gm/dL (12.0-15.0); MCH 33.1 pg (26.0-34.0); MCHC 34.3 g/dL (28.0-37.0); MCV 96.5 fL (80.0-100.0); MPV 8.4 fl. (7.2-11.1); RBC 3.28 mil/uL (4.20-5.00); RDW-CV 13.7 % (10.5-14.5); WBC 5.8 thou/uL (4.0-11.0)
[2021-03-30 04:18] LABS: CALCIUM 8.8 mg/dL (8.5-10.1); POTASSIUM 3.6 mmol/L (3.5-5.1)
[2021-03-30 05:13] VITALS: BP 125/46
--- NOTE | 2021-03-30 06:28 | NUR ---
NO ACUTE CHANGES THROUGHOUT SHIFT. ALL ROUNDINGS COMPLETED, ALL NEEDS MET. SEE CHARTING FOR DETAILS.
--- NOTE | 2021-03-30 08:02 | NUR ---
PT ADMITTED FROM [facility] FOR PNEUMONIA DX. PT HAD BEEN HAD [facility] FOR ~2 WKS. PT LIVES HOME WITH SPOUSE WHO ASSIST PT W/ADLS. PT USED A WALKER AND CANE FOR GAIT. PT HAS HX WITH [facility]. PER PT'S DTR, SEB, SHE WOULD LIKE PT TO RTRN TO SNF TO CONT REHAB. CM TO CONT TO FOLLOW.
--- NOTE | 2021-03-30 08:04 | NUR ---
PT ADMITTED FOR CHF, HEART FAILURE. PT LIVES HOME WITH DALIARMARGARITA. PT USES WALKER AND CANE. PT IS INDEPENDENT W/ADLS. PT IS SEMI-ACTIVE, SHE STATED "I CLEAN MY OWN ROOM." PT HAS HX WITH [facility]. PT MAY BENEFIT FROM HH AT D/C. CM TO CONT TO FOLLOW.
[2021-03-30 10:21] VITALS: BP 154/43
[2021-03-30 12:41] VITALS: BP 143/49
--- NOTE | 2021-03-30 15:17 | EKG ---
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
--- NOTE | 2021-03-30 16:00 | NUR ---
PT RESTING AT THIS TIME.NO C/O PAIN,N/V NOR SOA.PT HAS BEEN SR-SA WITH LEFT SIDED BBB ON MONITOR. EKG OBTAINED WITH A POSSIBLE NOTED RHYTHM CHANGE.CARDIOLOGY CONSULTED.ECHO YESTERDAY SHOWED 35-40% EF. PT DID HAVE CHEST PAIN THAT RADIATED TO LEFT SHOULDER DESCRIBED PRESSURE AT 1035.NITRO GIVEN X2.EKG OBTAINED SHOWING SR,LEFT SIDED BBB.CARDIOLOGY STATED TO GIVE 81MG ASA X4 AND WOULD ROUND ON PT.NOTHING FURTHER.CLWR.WCTM
--- NOTE | 2021-03-30 16:41 | EKG ---
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1940 Requested By: Marko Christopher Order Number: [id number] Noel MD: Seun Schwartz Measurements Intervals [place] Rate: 79 P: 54 [place]: 166 QRS: 0 QRSD: 157 T: 197 QT: 430 QTc: 494 Interpretive Statements Sinus rhythm Atrial premature complex Left bundle branch block Compared to ECG 03/30/2021 08:21:49 Atrial premature complex(es) now present Electronically Signed On 03-30-2021 16:41:01 CDT by Seun Schwartz [email or web address] <ELECTRONICALLY SIGNED> By: Seun Schwartz MD, FAC 03/30/21 1641 1057 1057 Seun Schwartz MD, [facility] /EPI
[2021-03-30 20:00] VITALS: BP 158/74
[2021-03-30 23:36] VITALS: BP 123/51
[2021-03-31 03:41] VITALS: BP 159/81
[2021-03-31 05:07] LABS: HEMATOCRIT 30.4 % (37.0-47.0); HEMOGLOBIN 10.4 gm/dL (12.0-15.0); MCH 33.3 pg (26.0-34.0); MCHC 34.1 g/dL (28.0-37.0); MCV 97.6 fL (80.0-100.0); MPV 8.6 fl. (7.2-11.1); NUCLEATED RBCS 0 /100WBC; PLATELET COUNT* 216 thou/uL (150-400); RBC 3.12 mil/uL (4.20-5.00); RDW-CV 13.8 % (10.5-14.5); WBC 7.7 thou/uL (4.0-11.0)
[2021-03-31 05:24] LABS: CALCIUM 9.2 mg/dL (8.5-10.1); CREATININE 2.3 mg/dL (0.6-1.3); POTASSIUM 3.9 mmol/L (3.5-5.1)
[2021-03-31 06:07] LABS: ABSOLUTE LYMPHOCYTES 0.7 thou/uL (0.8-5.3); ABSOLUTE MONOCYTES 0.1 thou/uL (0.0-1.2); ABSOLUTE NEUTROPHILS 6.9 thou/uL (1.6-8.1); ANISOCYTOSIS 1+; PLATELET ESTIMATE ADEQUATE; POIKILOCYTOSIS 1+
--- NOTE | 2021-03-31 06:30 | NUR ---
SLEPT WELL TONIGHT, TURNS SELF IN BED WITH REMINDERS. O2 ON AT 2L/NC, WITH HOB ELEVATED. HAVING OCC MOIST COUGH WITH SECREATIONS NOT OBSERVED. TELEMETRY ON SHOWING A FIB WITH BBB, THEN PERIODS OF SR. PUREWICK IN PLACE AND FUNCTIONING WELL. HS GOALS OF REST AND SAFETY ACHIEVED. HOURLY ROUNDING OBSERVED.
[2021-03-31 08:00] VITALS: BP 124/55
--- NOTE | 2021-03-31 08:22 | CON ---
[address] [address] CONSULTATION Name: KIKI HERNANDEZ Room: [address] IN M.R.#: [id number] Admission: 03/29/21 Attend Phys: Adithya Espitia Discharge: Date of : 42 Report #: [id number] THIS REPORT FOR: cc: Declan Spaulding MD,Declan Schwartz,Seun Jacobo MD [facility] ~ DOC #: [id number] cc: Dima Weber MD [facility], MD Seun Higgins MD DATE OF CONSULTATION: 03/30/2021 CARDIOLOGY CONSULTATION INDICATION: Shortness of breath, congestive heart failure, and COPD exacerbation. HISTORY OF PRESENT ILLNESS: The patient is a pleasant 80-year-old white female with a history of remote coronary artery bypass grafting and percutaneous coronary intervention. By stress test several years ago, she was found to have no evidence of ischemia and an ejection fraction of 47%. She presents to the hospital with complaints of three days of shortness of breath, orthopnea, and PND. In this setting, she is having some intermittent mild chest discomfort. Presently, she has shortness of breath, but no chest pain. She did rule out for myocardial infarction. A 12-lead EKG shows sinus rhythm with left bundle branch block. PAST MEDICAL HISTORY: Significant for coronary artery disease, hypertension, hyperlipidemia, sleep apnea, diabetes, COPD and mild chronic systolic heart failure and chronic renal insufficiency. HOME MEDICATIONS: Albuterol nebulizer treatment q.i.d. p.r.n., allopurinol 100 mg daily, atorvastatin 40 mg daily, carvedilol 6.25 mg b.i.d., vitamin D3 2000 units orally daily, Plavix 75 mg daily, vitamin B12 5000 mcg daily, Cymbalta 60 mg daily, furosemide 40 mg daily, Mucinex 600 mg daily, Lantus insulin 10 units at bedtime, lispro insulin 10 units before meal, isosorbide mononitrate 60 mg b.i.d., Singulair 10 mg daily, Protonix 40 mg daily, ranolazine 500 mg b.i.d., sertraline 25 mg daily. ALLERGIES: None documented. FAMILY HISTORY: Noncontributory. SOCIAL HISTORY: The patient is . [place] [address] CONSULTATION Name: KIKI HERNANDEZ Room: [address]#: [id number] Admission: 03/29/21 Attend Phys: Adithya Espitia Discharge: Date of : 42 Report #: [id number] REVIEW OF SYSTEMS: Positive for shortness of breath, intermittent chest pain, orthopnea, PND, joint pain, cough productive of yellow sputum. Otherwise, unremarkable. PHYSICAL EXAMINATION: VITAL SIGNS: Stable. Blood pressure 143/49, pulse of 73 and regular. Telemetry shows sinus rhythm with left bundle branch block. GENERAL: This is a moderately obese, pleasant white female who does not appear to be in distress. HEENT: The patient is wearing glasses. Extraocular muscles intact. Mucous membranes moist. NECK: Shows jugular venous distention. I do not appreciate carotid bruit. CHEST: Reveals diminished breath sounds with diffuse expiratory wheezes. HEART: Reveals distant S1 and S2. I do not appreciate gallop or murmur. ABDOMEN: Reveals a protuberant abdomen is soft and nontender. EXTREMITIES: Shows no edema. SKIN: Dry. LABORATORY DATA: Reviewed. Electrolytes within normal limits. BUN 39, creatinine 2.0. Serum glucose 251. Troponin less than 0.06 on 3 separate occasions. NT-proBNP is 16,146. Chest x-ray shows possible mild vascular congestion versus interstitial fibrosis. IMPRESSION AND RECOMMENDATION: 1. Acute on chronic combined heart failure. Agree with continued IV diuretic. We will follow labs in a.m. as she does have some renal insufficiency as well. She is on a combination of medications including spironolactone and carvedilol. She is not on an MORRIS or an ARB, presumably due to underlying renal insufficiency. 2. Chest discomfort, atypical, doubt this represents acute coronary syndrome. Her troponins are unremarkable. No further treatment at this time. 3. Chronic obstructive pulmonary disease exacerbation. Agree with current management. Recommend p.r.n. nebulizer treatments for symptomatic relief. 4. Hypertension, presently stable on current regimen. 5. Dyslipidemia. Continue atorvastatin at current dose. 6. Chronic renal insufficiency, appears stable by her baseline labs at this point in time. We will follow up labs in a.m. MD CAROLEE Prather/NEDA/HARI [address] [address] CONSULTATION Name: KIKI HERNANDEZ Room: [address] IN M.R.#: [id number] Admission: 03/29/21 Attend Phys: Adithya Espitia Discharge: Date of : 42 Report #: [id number] <ELECTRONICALLY SIGNED> By: Seun Schwartz MD, FACC 03/31/21 0822 1213 [id number] Schwartz MD, FACC /nt
[2021-03-31 12:00] VITALS: BP 164/64
[2021-03-31 16:00] VITALS: BP 152/56
[2021-03-31 20:00] VITALS: BP 178/68
--- NOTE | 2021-03-31 20:00 | NUR ---
RECEIVED REPORT AND ASSUMED CARE OF PT, ASSESSMENT COMPLETED. PT VERY PLEASANT BUT KWIGILLINGOK. COMMUNICATES WELL WITH LOUD VOICE. ASSISTED TO BR WITH WALKER AND SBA. PT DOES HAVE STRESS INCONT WITH BRIEF ON. PT DOES BECOME VERY SOA WITH ACTIVITY, SLOW RECOVERY OF REGULAR RESP. TELEMETRY ON SHOWING SR WITH BBB. WILL CONT TO MONITOR AND ASSIST NEEDED.
[2021-04-01 00:02] VITALS: BP 147/47
[2021-04-01 05:33] LABS: ABSOLUTE LYMPHOCYTES 0.7 thou/uL (0.8-5.3); ABSOLUTE MONOCYTES 0.3 thou/uL (0.0-1.2); ABSOLUTE NEUTROPHILS 6.7 thou/uL (1.6-8.1); HEMATOCRIT 30.6 % (37.0-47.0); HEMOGLOBIN 10.4 gm/dL (12.0-15.0); LYMPHOCYTES 8.5 %; MCH 32.6 pg (26.0-34.0); MCV 95.9 fL (80.0-100.0); MONOCYTES 4.3 %; MPV 8.6 fl. (7.2-11.1); NUCLEATED RBCS 0 /100WBC; PLATELET COUNT* 257 thou/uL (150-400); POLYS 87.2 %; RBC 3.19 mil/uL (4.20-5.00); RDW-CV 13.6 % (10.5-14.5); WBC 7.7 thou/uL (4.0-11.0)
[2021-04-01 05:38] VITALS: BP 155/51
[2021-04-01 05:45] LABS: ALBUMIN 2.9 g/dL (3.4-5.0); CALCIUM 8.7 mg/dL (8.5-10.1); POTASSIUM 3.5 mmol/L (3.5-5.1); TOTAL BILIRUBIN 0.4 mg/dL (<0.1-1.0); TOTAL PROTEIN 6.1 g/dL (6.4-8.2)
--- NOTE | 2021-04-01 06:08 | NUR ---
SLEPT WELL TONIGHT. ASSISTED TO BR WITH WALKER AND STEADY GAIT. CONT TO BE SOA WITH ANY ACTIVITY. TELEMETRY CONT TO SHOW SR WITH BBB. NO CHANGE IN ASSESSMENT. HS GOALS OF REST AND SAFETY ACHIEVED. HOURLY ROUNDING OBSERVED.
[2021-04-01 08:00] VITALS: BP 166/66
[2021-04-01] MEDS ORDERED: CEFDINIR300 MG PO (11:24)
[2021-04-01 12:00] VITALS: BP 141/51
[2021-04-01 16:30] VITALS: BP 125/44
[2021-04-01 20:00] VITALS: BP 151/56
[2021-04-02] VITALS: BP 128/73
[2021-04-02 04:00] VITALS: BP 129/56
--- NOTE | 2021-04-02 06:18 | NUR ---
ASSUMED CARE OF PT AFTER REPORT AT 1930. PT A&0X4. VSS. PHYSICAL ASSESSMENT COMPLETED AND CHARTED. PT ON O2 AT 2L NC. PT TRACING SR/SB/BBB ON TELE. PT UPSTANDBY TO RESTROOM. PT DENIES ANY PAIN. FALL PREACUTIONS IN PLACE. CALL LIGHT WITHIN REACH.
[2021-04-02 08:45] VITALS: BP 162/74
[2021-04-02 13:08] VITALS: BP 152/58
[2021-04-02 14:46] VITALS: BP 152/58
--- NOTE | 2021-04-02 15:22 | NUR ---
RECEIVED REPORT. ASSUMED CARE OF PT AROUND 0730. AM ASSESSMENT AND VITALS COMPLETED CHARTED. MEDS PER EMAR. DISCHARGE ORDERS RECEIVED.DISCHARGE COMPLETED DOCUMENTED. HOME HEALTH AND HOME O2 SET UP. IV AND ROUGH CARPENTER REMOVED. ALL BELONGINGS GATHERED AND SENT OUT WITH PT. UPDATE GIVEN TO PT'S GRANDAUQUEENIE WHO PICKED HER UP. 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 PT LEFT UNIT WC WITH NURSING STAFF. PT LEFT HOSPITAL IN CAR WITH GRANDDAUGHTER.
== END 2021-04-02 15:22 | disposition home health service (06) | DRG 291 ==
LOC: M.ERS 09:24 → M.2W 11:01 → M.TBA-ER 11:01 → M.2W 15:15
PROVIDERS: Emergency Medicine Emergency Medical Services; Family Medicine; Internal Medicine Cardiovascular Disease; ADMIT Internal Medicine; ATTEND Internal Medicine
DX: I13.0 Hypertensive heart and chronic kidney disease with heart failure and stage 1 through stage 4 chronic kidney disease, or unspecified chronic kidney disease (principal); I50.43 Acute on chronic combined systolic (congestive) and diastolic (congestive) heart failure; N17.0 Acute kidney failure with tubular necrosis; J96.21 Acute and chronic respiratory failure with hypoxia; J44.1 Chronic obstructive pulmonary disease with (acute) exacerbation; N18.9 Chronic kidney disease, unspecified; F32.9 Major depressive disorder, single episode, unspecified; M10.9 Gout, unspecified; F02.80 Dementia in other diseases classified elsewhere, unspecified severity, without behavioral disturbance, psychotic disturbance, mood disturbance, and anxiety; E11.22 Type 2 diabetes mellitus with diabetic chronic kidney disease; G30.9 Alzheimer's disease, unspecified; I25.10 Atherosclerotic heart disease of native coronary artery without angina pectoris; E78.5 Hyperlipidemia, unspecified; I48.0 Paroxysmal atrial fibrillation; E66.9 Obesity, unspecified; I25.5 Ischemic cardiomyopathy; I27.20 Pulmonary hypertension, unspecified; Z20.822 Contact with and (suspected) exposure to COVID-19; Z86.711 Personal history of pulmonary embolism; Z90.49 Acquired absence of other specified parts of digestive tract; Z68.39 Body mass index [BMI] 39.0-39.9, adult; Z95.1 Presence of aortocoronary bypass graft; Z79.4 Long term (current) use of insulin; Z79.899 Other long term (current) drug therapy; Z79.01 Long term (current) use of anticoagulants